=== PATIENT | female | born 1945 | race Caucasian/White ===

== ENCOUNTER 2017-07-26 09:09 | Inpatient (IN) | payer OTHER, BC ==
[2017-07-26] MEDS ORDERED: SODIUM CHLORIDE 0.9% 1000 ML INFUS.BAG IV ONE (09:44)
[2017-07-26] MEDS ORDERED: ONDANSETRON 4 MG/2 ML VIAL IVPUSH ONE (09:44)
--- NOTE | 2017-07-26 10:09 | PDOC ---
History of Present Illness - History of Present Illness Initial Comments: 07/26/17 10:23 The patient is a 71 year old female with history of hypertension, hyperlipidemia , diabetes, atrial fibrillation, CVA x 6, uterine CA s/p hysterectomy, who presents to the ED complaining of left abdominal pain, nausea, and multiple episodes of nonbloody nonbilious vomiting that began last night. She states she has producing multiple bowel movements, no diarrhea or constipation. She denies fever or chills. She denies chest pain or shortness of breath. PCP: Dr. Benjamin Signals Collector/Analyst: Dr. Kahn <Lizzie Betancourt - Last Filed: 07/26/17 16:28> - General History Source: Patient Exam Limitations: No Limitations <Sammi Rodriguez - Last Filed: 07/26/17 17:15> - General Stated Complaint: PAIN Past History <Lizzie Betancourt - Last Filed: 07/26/17 16:28> - Past Medical History Anemia: No Asthma: No Cancer: Yes (uterine ca with radiation hx) CVA: Yes (cva x 6 with left facial and UE residual) COPD: No Diabetes: Yes HTN: Yes Hypercholesterolemia: Yes - Surgical History Cardiac Surgery: Yes (STENTx2) Cholecystectomy: Yes - Immunization History Immunization Up to Date: Yes - Suicide/Smoking/Psychosocial Hx Smoking Status: No Smoking History: Never smoked Have you smoked in the past 12 months: No Number of Cigarettes Smoked Daily: 0 Hx Alcohol Use: No Drug/Substance Use Hx: No Substance Use Type: None Hx Substance Use Treatment: No <Sammi Rodriguez - Last Filed: 07/26/17 17:15> - Past Medical History Allergies/Adverse Reactions: Allergies Allergy/AdvReac Type Severity Reaction Status Date / Time No Known Allergies Allergy Verified 08/08/16 14:30 Home Medications: Ambulatory Orders Escitalopram Oxalate [Lexapro -] 5 mg PO DAILY #0 tablet 09/24/13 Furosemide [Lasix -] 40 mg PO DAILY #30 tablet 08/17/16 Rivaroxaban [Xarelto -] 20 mg PO DAILY tablet 08/17/16 Amiodarone HCl 200 mg PO ONCE 07/26/17 Atorvastatin Ca [Lipitor] 40 mg PO HS 07/26/17 Digoxin [Lanoxin -] 0.125 mg PO DAILY 07/26/17 Insulin Glargine,Hum.rec.anlog [Lantus (nf)] 10 units SQ HS 07/26/17 Metoprolol Tartrate [Lopressor -] 50 mg PO TID 07/26/17 Omeprazole 20 mg PO ONCE 07/26/17 Review of Systems - Review of Systems Able to Perform ROS?: Yes Comments:: 07/26/17 10:31 GENERAL/CONSTITUTIONAL: No fever or chills. No acute weakness. HEAD, EYES, EARS, NOSE AND THROAT: No change in vision. No ear pain or discharge. No sore throat. CARDIOVASCULAR: No chest pain or shortness of breath. RESPIRATORY: No cough, wheezing, or hemoptysis. GASTROINTESTINAL: +Left abdominal pain, nausea, multiple episodes of diarrhea. No diarrhea or constipation. GENITOURINARY: No dysuria, frequency, or change in urination. MUSCULOSKELETAL: No joint or muscle swelling or pain. No neck or back pain. SKIN: No rash NEUROLOGIC: No headache, vertigo, loss of consciousness, or change in strength/ sensation. ENDOCRINE: No increased thirst. No abnormal weight change. HEMATOLOGIC/LYMPHATIC: No anemia, easy bleeding, or history of blood clots. ALLERGIC/IMMUNOLOGIC: No hives or skin allergy. <Lizzie Betancourt - Last Filed: 07/26/17 16:28> *Physical Exam - Vital Signs Last Vital Signs Temp Pulse Resp BP Pulse Ox 97.9 F 69 18 114/49 100 07/26/17 09:23 07/26/17 09:23 07/26/17 09:23 07/26/17 09:23 07/26/17 09:23 - Physical Exam Comments: 07/26/17 10:37 GENERAL: WDWN. In no acute distress HEAD: No signs of trauma EYES: PERRLA, EOMI, sclera anicteric, conjunctiva clear ENT: Auricles normal inspection, nares patent. Moist mucosa NECK: Normal ROM, supple, no JVD, or masses LUNGS: Breath sounds equal, clear to auscultation bilaterally. No wheezes, and no crackles HEART: Regular rate and rhythm, normal S1 and S2, no murmurs, rubs or gallops ABDOMEN: +Left mid abdominal tenderness to palpation. Soft, normoactive bowel sounds. No guarding, no rebound. No masses EXTREMITIES: Normal range of motion, no edema. No clubbing or cyanosis. No cords, erythema, or tenderness NEUROLOGICAL: Awake and alert. Moving all extremities. Ambulates with walker. SKIN: Warm, Dry, normal turgor, no rashes or lesions noted. <Lizzie Betancourt - Last Filed: 07/26/17 16:28> - Vital Signs Last Vital Signs Temp Pulse Resp BP Pulse Ox 97.9 F 69 18 114/49 100 07/26/17 09:23 07/26/17 09:23 07/26/17 09:23 07/26/17 09:23 07/26/17 09:23 <ZeniakandisSammi - Last Filed: 07/26/17 17:15> Heart Score/ECG Review #1 General ECG Interpretation: Sinus Rhythm, Normal Rate (66), Normal Intervals, No acute ischemic changes <JenniferSammi - Last Filed: 07/26/17 17:15> ED Treatment Course - LABORATORY CBC & Chemistry Diagram: 07/26/17 11:04 07/26/17 11:04 <Lizzie Betancourt - Last Filed: 07/26/17 16:28> - LABORATORY CBC & Chemistry Diagram: 07/26/17 11:04 07/26/17 11:04 - RADIOLOGY Radiology Studies Ordered: Category Date Time Status ABDOMEN & PELVIS CT WITH CONTR [CT] Stat CT Scan 07/26/17 09:43 Ordered <JenniferSammi - Last Filed: 07/26/17 17:15> Medical Decision Making - Medical Decision Making 07/26/17 16:29 CT of adbomen and pelvis, read and reviewed by Dr. Evans, shows evidence of partial SBO. Case discussed with Dr. Thompson of general surgery who agrees to consult. Admit to Dr. Lamar, who admits for patients PCP Dr. Benjamin. <Lizzie Betancourt - Last Filed: 07/26/17 16:28> - Medical Decision Making 07/26/17 10:02 71-year-old female with a history of hypertension, diabetes, prior CVA with mild residual left-sided weakness here today with nausea and vomiting that started last evening. Patient reports multiple episodes of nonbloody nonbilious emesis. Has been having stools no change denies diarrhea. Now having mild left- sided abdominal pain. No fevers, chills, urinary symptoms, no moderating factors. On exam the patient has mild left mid quadrant abdominal tenderness no rebound no guarding. Otherwise unremarkable Differential diagnosis: Dehydration, electrolyte abnormality, diverticulitis, small bowel obstruction, pancreatitis. Plan: IV fluids, labs, CT abdomen and pelvis and UA. <Sammi Rodriguez - Last Filed: 07/26/17 17:15> *DC/Admit/Observation/Transfer - Attestations Scribe Attestion: 07/26/17 10:39 Documentation prepared by Lizzie Betancourt, acting as medical aide for Sammi Rodriguez MD. <Lizzie Betancourt - Last Filed: 07/26/17 16:28> - Discharge Dispostion Admit: Yes <Sammi Rodriguez - Last Filed: 07/26/17 17:15> Diagnosis at time of Disposition: Partial small bowel obstruction - Referrals Referrals: Amber Benjamin MD [Primary Care Provider] - - Patient Instructions - Post Discharge Activity
[2017-07-26] MEDS ORDERED: ONDANSETRON 4 MG/2 ML VIAL ONE (10:27)
[2017-07-26 11:16] LABS: BASOPHIL 0.3 % (0-2.0); MCH 29.6 pg (25.7-33.7); MCHC 33.2 g/dl (32.0-36.0); MEAN CELL VOLUME 89.1 fl (80-96); MEAN PLT VOLUME 9.6 fl (7.5-11.1); NEUTROPHILS 89.3 % (42.8-82.8); PLATELET COUNT 165 K/MM3 (134-434); RDW 14.6 % (11.6-15.6); WHITE BLOOD COUNT 13.6 K/mm3 (4.0-10.0)
[2017-07-26 11:50] LABS: ALBUMIN 3.5 g/dl (3.4-5.0); ALK PHOS 76 U/L (45-117); ANION GAP 14 (8-16); BILIRUBIN,TOTAL 0.7 mg/dL (0.2-1.0); CALCIUM 9.5 mg/dL (8.5-10.1); CO2 26 mmol/L (21-32); CREATININE 1.4 mg/dL (0.55-1.02); SGOT/AST 31 U/L (15-37); SGPT/ALT 30 U/L (12-78); TOT PROT 7.6 g/dl (6.4-8.2)
[2017-07-26 11:55] LABS: URINE APPEARANCE SLCLOUDY; URINE BILIRUBIN NEGATIVE (NEGATIVE); URINE BLOOD NEGATIVE (NEGATIVE); URINE COLOR YELLOW; URINE GLUCOSE (UA) 3+ (NEGATIVE); URINE KETONE NEGATIVE (NEGATIVE); URINE NITRITE NEGATIVE (NEGATIVE); URINE UROBILINOGEN NEGATIVE mg/dL (0.2-1.0)
[2017-07-26 12:03] LABS: URINE PROTEIN 2+ (NEGATIVE)
[2017-07-26 12:10] LABS: URINE BACTERIA MANY /hpf (NONE SEEN); URINE HYALINE CAST 22 /lpf; URINE MUCUS RARE; URINE RBC 0-2 /hpf (0-3)
[2017-07-26 12:22] LABS: GLUCOSE,RANDOM 318 mg/dL (74-106)
[2017-07-26 16:21] LABS: URINE LEUK ESTERASE Negative (NEGATIVE)
[2017-07-26] MEDS ORDERED: ONDANSETRON 4 MG/2 ML VIAL IVPUSH PRN (16:51)
[2017-07-26] MEDS ORDERED: morphine SULFATE 4 MG/ML VIAL IVPUSH PRN (16:51)
[2017-07-26] MEDS ORDERED: DOCUSATE SODIUM 100 MG CAPSULE (FP) PO PRN (16:51)
[2017-07-26] MEDS ORDERED: HEPARIN NA (PORCINE) 5,000 UNITS/ML 1ML VIAL IVPUSH PRN ×2 (17:02)
--- NOTE | 2017-07-26 17:09 | HP ---
Admitting History and Physical - Primary Care Physician PCP: Amber Benjamin - Admission Chief Complaint: I'm throwing up History of Present Illness: Ms Whitlock is a pleasant 71 year old female who comes in with abdominal pain and throwing up x24 hours. She was in her normal state of health until last when she developed abdominal pain. She says the pain was sharp/crampy in nature and constant. At its worst it was an 8/10. She says nothing relieved or exacerbated it. She says she soon after developed vomiting. She states that the emesis was clear, there was no blood or coffee ground emesis. She had anorexia secondary to the pain and vomiting. The pain was not improving and she came in here. Aside from this she is without complaint. She denies fevers, chills, lightheadedness, dizziness, passing out, chest pain or pressure, shortness of breath, diarrhea, constipation, pain or difficulty urinating, or swelling. She says her last bowel movement was this morning and was normal. 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 Cardiovascular: Yes: AFIB, CAD, CHF, HTN, Hyperlipdemia Gastrointestinal: Yes: Other (history colon cancer by report, resection) Psych: Yes: Depression Endocrine: Yes: Diabetes Mellitus - Past Surgical History Past Surgical History: Yes: Hysterectomy - Smoking History Smoking history: Never smoked Have you smoked in the past 12 months: No Aproximately how many cigarettes per day: 0 - Alcohol/Substance Use Hx Alcohol Use: No History of Substance Use: reports: None - Social History Usual Living Arrangement: Yes: With Child ADL: Support Services History of Recent Travel: No Home Medications - Allergies Allergies/Adverse Reactions: Allergies Allergy/AdvReac Type Severity Reaction Status Date / Time No Known Allergies Allergy Verified 08/08/16 14:30 - Home Medications Home Medications: Ambulatory Orders Escitalopram Oxalate [Lexapro -] 5 mg PO DAILY #0 tablet 09/24/13 Furosemide [Lasix -] 40 mg PO DAILY #30 tablet 08/17/16 Rivaroxaban [Xarelto -] 20 mg PO DAILY tablet 08/17/16 Amiodarone HCl 200 mg PO ONCE 07/26/17 Atorvastatin Ca [Lipitor] 40 mg PO HS 07/26/17 Digoxin [Lanoxin -] 0.125 mg PO DAILY 07/26/17 Insulin Glargine,Hum.rec.anlog [Lantus (nf)] 10 units SQ HS 07/26/17 Metoprolol Tartrate [Lopressor -] 50 mg PO TID 07/26/17 Omeprazole 20 mg PO ONCE 07/26/17 Family Disease History - Family Disease History Family History: Unremarkable Family Disease History: Other: Mother ( at age 95) Review of Systems Findings/Remarks: Full review of systems obtained, as per HPI and otherwise negative Physical Examination Vital Signs: Vital Signs Temperature 37.2 C 07/26/17 14:28 Pulse Rate 80 07/26/17 14:28 Respiratory Rate 18 07/26/17 14:28 Blood Pressure 139/57 07/26/17 14:28 O2 Sat by Pulse Oximetry (%) 100 07/26/17 14:28 Constitutional: Yes: Well Nourished, No Distress, Calm Eyes: Yes: Conjunctiva Clear, EOM Intact, PERRL HENT: Yes: Atraumatic, Normocephalic Cardiovascular: Yes: Regular Rate and Rhythm. No: Gallop, Murmur, Rub Respiratory: Yes: Regular, CTA Bilaterally. No: Rales, Rhonchi, Wheezes Gastrointestinal: Yes: Soft, Hypoactive Bowel Sounds (but present). No: Distention, Tenderness Extremities: Yes: WNL Edema: No Labs: CBC, BMP 07/26/17 11:04 07/26/17 11:04 Imaging - Results Cat Scan: Report Reviewed Problem List - Problems (1) Partial small bowel obstruction Assessment/Plan: -patient presents with abdominal pain and vomiting -found to have partial SBO on CT scan -surgery consulted -admit to med surg -npo except meds -NGT placement -hydration -monitor for improvement Code(s): K56.600 - PARTIAL INTESTINAL OBSTRUCTION, UNSPECIFIED TO CAUSE (2) BENITO (acute kidney injury) Assessment/Plan: -secondary to dehydration -hold lasix -hydrate with IVF -I/Os and daily weights Code(s): N17.9 - ACUTE KIDNEY FAILURE, UNSPECIFIED (3) Pneumonia Assessment/Plan: -noted on CT scan -also with leukocytosis -possible aspiration pneumonia, however leukocytosis could be from GI source or inflammation -will place on flagyl -considered levaquin, however has interaction with amiodarone -place on rocephin Code(s): J18.9 - PNEUMONIA, UNSPECIFIED ORGANISM Qualifiers: Pneumonia type: due to Mycoplasma pneumoniae (4) Bacteriuria Assessment/Plan: -lower suspicion for acute UTI considering urinalysis -however will check urine culture -will place on rocephin/flagyl for above reason Code(s): R82.71 - BACTERIURIA (5) Atrial fibrillation Assessment/Plan: -rhythm controlled with amiodarone -however has history of CVAs in past -continue amiodarone and metoprolol -cardiology consult -will place on heparin gtt since with strokes in past -hold xarelto Code(s): I48.91 - UNSPECIFIED ATRIAL FIBRILLATION Qualifiers: Atrial fibrillation type: chronic Qualified Code(s): I48.2 - Chronic atrial fibrillation (6) Diabetes Assessment/Plan: -with hyperglycemia -FSBS q6h with SSI Code(s): E11.9 - TYPE 2 DIABETES MELLITUS WITHOUT COMPLICATIONS Qualifiers: Diabetes mellitus type: type 2 Diabetes mellitus complication status: with circulatory complication Diabetes mellitus halfway insulin use: without halfway use (7) Chronic systolic CHF (congestive heart failure) Assessment/Plan: -not in exacerbation -hydration secondary to BENITO -hold lasix Code(s): I50.22 - CHRONIC SYSTOLIC (CONGESTIVE) HEART FAILURE (8) Aortic stenosis Assessment/Plan: -calcification noted on CT scan -no murmur heard -followed by Dr Kahn, case d/w Dr Garcia -consult place, if no recent ECHO may benefit from one while here Code(s): I35.0 - NONRHEUMATIC AORTIC (VALVE) STENOSIS
[2017-07-26] MEDS: SODIUM CHLORIDE 1,000 ML IV SCH (17:15)
[2017-07-26] MEDS: CEFTRIAXONE 1 G/50 ML PREMIX 1 ML IVPB SCH (17:30)
[2017-07-26] MEDS ORDERED: HEPARIN INFUSION - 25,000 UNITS/500 ML INFUS.BAG IVPB ONE (17:59)
[2017-07-26] MEDS ORDERED: METRONIDAZOLE 500 MG PREMIXED 500 MG/100 ML MG IVPB ONE (17:59)
[2017-07-26] MEDS: METRONIDAZOLE 500 MG PREMIXED 500 MG/100 ML MG IVPB SCH ×2 (18:06→18:44)
[2017-07-26 18:09] VITALS: BMI 26.6
[2017-07-26 18:13] LABS: INR 1.35 (0.82-1.09); PROTHROMBIN TIME (PATIENT) 15.2 SEC (9.98-11.88)
--- NOTE | 2017-07-26 19:20 | CONSULT ---
Consult Consult Specialty:: Surgery Reason for Consultation:: Abdominal pain, intestinal obstruction. - History of Present Illness Chief Complaint: C/O abdominal pain History of Present Illness: 71 year old woman is admitted with abdominal pain since last night, associated with vomiting and vomiting. Last bowel movement this am. 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 Cardio/Vascular: Yes: AFIB, CAD, CHF, HTN, Hyperlipdemia Gastrointestinal: Yes: Other (history colon cancer by report, resection) Psych: Yes: Depression Endocrine: Yes: Diabetes Mellitus - Past Surgical History Past Surgical History: Yes: Hysterectomy - Alcohol/Substance Use Hx Alcohol Use: No History of Substance Use: reports: None - Smoking History Smoking history: Never smoked Have you smoked in the past 12 months: No Aproximately how many cigarettes per day: 0 - Social History ADL: Support Services History of Recent Travel: No Home Medications - Allergies Allergies/Adverse Reactions: Allergies Allergy/AdvReac Type Severity Reaction Status Date / Time No Known Allergies Allergy Verified 08/08/16 14:30 - Home Medications Home Medications: Ambulatory Orders Escitalopram Oxalate [Lexapro -] 5 mg PO DAILY #0 tablet 09/24/13 Furosemide [Lasix -] 40 mg PO DAILY #30 tablet 08/17/16 Rivaroxaban [Xarelto -] 20 mg PO DAILY tablet 08/17/16 Amiodarone HCl 200 mg PO ONCE 07/26/17 Atorvastatin Ca [Lipitor] 40 mg PO HS 07/26/17 Digoxin [Lanoxin -] 0.125 mg PO DAILY 07/26/17 Insulin Glargine,Hum.rec.anlog [Lantus (nf)] 10 units SQ HS 07/26/17 Metoprolol Tartrate [Lopressor -] 50 mg PO TID 07/26/17 Omeprazole 20 mg PO ONCE 07/26/17 Family Disease History - Family Disease History Family Disease History: Other: Mother ( at age 95) Physical Exam Vital Signs: Vital Signs Temperature 99 F 07/26/17 17:42 Pulse Rate 84 07/26/17 17:42 Respiratory Rate 18 07/26/17 17:42 Blood Pressure 134/69 07/26/17 17:42 O2 Sat by Pulse Oximetry (%) 98 07/26/17 17:42 Cardiovascular: Yes: S1 Labs: CBC, BMP 07/26/17 11:04 07/26/17 11:04 Imaging - Results Cat Scan: Report Reviewed, Image Reviewed Problem List - Problems (1) Partial small bowel obstruction Code(s): K56.600 - PARTIAL INTESTINAL OBSTRUCTION, UNSPECIFIED TO CAUSE (2) Abdominal pain Code(s): R10.9 - UNSPECIFIED ABDOMINAL PAIN Qualifiers: Abdominal location: unspecified location Qualified Code(s): R10.9 - Unspecified abdominal pain (3) Atrial fibrillation Code(s): I48.91 - UNSPECIFIED ATRIAL FIBRILLATION Qualifiers: Atrial fibrillation type: chronic Qualified Code(s): I48.2 - Chronic atrial fibrillation (4) BENITO (acute kidney injury) Code(s): N17.9 - ACUTE KIDNEY FAILURE, UNSPECIFIED (5) Chronic systolic CHF (congestive heart failure) Code(s): I50.22 - CHRONIC SYSTOLIC (CONGESTIVE) HEART FAILURE Assessment/Plan Nasogastricaspiration, Intravenous fluids Follow up abdominal Xray. Follow blood work.
[2017-07-26] MEDS: HEPARIN - 25,000 UNIT in SODIUM CHLORIDE 495 ML IV SCH (19:30)
[2017-07-26] MEDS: INSULIN SLIDING SCALE (NOVOLOG) 1 VIAL SQ SCH (22:44)
[2017-07-26] MEDS: METOPROLOL TARTRATE 25 MG TABLET (FP) PO SCH (22:44)
[2017-07-27] MEDS: METRONIDAZOLE 500 MG PREMIXED 500 MG/100 ML MG IVPB SCH ×3 (01:31→17:52)
[2017-07-27] MEDS: INSULIN SLIDING SCALE (NOVOLOG) 1 VIAL SQ SCH ×4 (06:05→17:55)
[2017-07-27] MEDS: METOPROLOL TARTRATE 25 MG TABLET (FP) PO SCH ×3 (06:06→21:58)
[2017-07-27 09:56] LABS: BASOPHIL 0.3 % (0-2.0); MCH 29.2 pg (25.7-33.7); MCHC 32.4 g/dl (32.0-36.0); MEAN CELL VOLUME 90.2 fl (80-96); MEAN PLT VOLUME 9.7 fl (7.5-11.1); NEUTROPHILS 76.7 % (42.8-82.8); PLATELET COUNT 141 K/MM3 (134-434); RDW 15.6 % (11.6-15.6); WHITE BLOOD COUNT 12.9 K/mm3 (4.0-10.0)
[2017-07-27] MEDS ORDERED: AMIODARONE HCL 200 MG TABLET (FP) PO SCH (10:00)
--- NOTE | 2017-07-27 10:09 | PN ---
Progress Note, Physician - Current Medication List Current Medications: Active Medications Amiodarone HCl (Cordarone -) 200 mg PO DAILY [facility] Digoxin (Lanoxin -) 0.125 mg PO DAILY [facility] Docusate Sodium (Colace -) 100 mg PO BID PRN PRN Reason: CONSTIPATION Escitalopram Oxalate (Lexapro -) 5 mg PO DAILY [facility] Heparin Sodium (Porcine) (Heparin -) 1,000 unit IVPUSH PRN PRN PRN Reason: Heparin Heparin Sodium (Porcine) (Heparin -) 5,000 unit IVPUSH PRN PRN PRN Reason: Heparin Sodium Chloride (Normal Saline -) 1,000 mls @ 75 mls/hr IV ASDIR [facility] Last Admin: 07/26/17 17:15 Dose: 75 mls/hr CEFTRIAXONE 1 G/50 ML PREMIX (Ceftriaxone 1 Gm-D5w Bag) 1 mls @ 2 mls/hr IVPB DAILY [facility] Last Admin: 07/26/17 17:30 Dose: 2 mls/hr Metronidazole (Flagyl 500mg Premixed Ivpb -) 500 mg in 100 mls @ 100 mls/hr IVPB Q8H-IV [facility] Last Admin: 07/27/17 01:31 Dose: 100 mls/hr Heparin Sodium (Porcine) 25, (000 unit/ Sodium Chloride) 500 mls @ 20 mls/hr IV TITR NADIYA; 1,000 UNIT/HR PRN Reason: Protocol Last Admin: 07/26/17 19:30 Dose: 1,000 unit/hr, 20 mls/hr Insulin Aspart (Novolog Vial Sliding Scale -) 1 vial SQ ACHS NADIYA PRN Reason: Protocol Last Admin: 07/27/17 06:05 Dose: Not Given Metoprolol Tartrate (Lopressor -) 50 mg PO TID [facility] Last Admin: 07/27/17 06:06 Dose: Not Given Morphine Sulfate (Morphine Sulfate) 1 mg IVPUSH Q4H PRN PRN Reason: PAIN Ondansetron HCl (Zofran Injection) 4 mg IVPUSH Q6H PRN PRN Reason: NAUSEA Polyethylene Glycol (Miralax (For Daily Use) -) 17 gm PO DAILY [facility] - Objective Vital Signs: Vital Signs Temperature 99.3 F 07/27/17 05:58 Pulse Rate 68 07/27/17 05:58 Respiratory Rate 21 07/27/17 05:58 Blood Pressure 103/60 07/27/17 05:58 O2 Sat by Pulse Oximetry (%) 98 07/26/17 21:00 Labs: CBC, BMP 07/26/17 11:04 INR, PTT INR 1.35 (0.82-1.09) H D 07/26/17 17:50 Problem List - Problems (1) Partial small bowel obstruction Code(s): K56.600 - PARTIAL INTESTINAL OBSTRUCTION, UNSPECIFIED TO CAUSE (2) Abdominal pain Code(s): R10.9 - UNSPECIFIED ABDOMINAL PAIN Qualifiers: Abdominal location: unspecified location Qualified Code(s): R10.9 - Unspecified abdominal pain (3) Atrial fibrillation Code(s): I48.91 - UNSPECIFIED ATRIAL FIBRILLATION Qualifiers: Atrial fibrillation type: chronic Qualified Code(s): I48.2 - Chronic atrial fibrillation (4) BENITO (acute kidney injury) Code(s): N17.9 - ACUTE KIDNEY FAILURE, UNSPECIFIED (5) Chronic systolic CHF (congestive heart failure) Code(s): I50.22 - CHRONIC SYSTOLIC (CONGESTIVE) HEART FAILURE Assessment/Plan Intestinal obstructio , partial. Patient feels better v. Abdomen is soft, not tender. Abdomenal X ray , shows contrast in descending colon , with no dilated loops of small bowel . ? resolved small bowel obstruction. D/C NG tube , resume feeding. discussed with the medical service. Patient is explained.
--- NOTE | 2017-07-27 10:38 | PN ---
Progress Note (short form) - Note Progress Note: c/o abdominal pain but states it is improved since yesterday. +frequent belching. denies SOB, fever, chills, cough, N/V/C/D, dysuria, urinary frequency Current Medications Generic Name Dose Route Start Last Admin Trade Name Freq PRN Reason Stop Dose Admin Amiodarone HCl 200 mg 07/27/17 10:00 Cordarone - PO DAILY [facility] Digoxin 0.125 mg 07/27/17 10:00 Lanoxin - PO DAILY [facility] Docusate Sodium 100 mg 07/26/17 16:51 Colace - PO BID PRN CONSTIPATION Escitalopram Oxalate 5 mg 07/27/17 10:00 Lexapro - PO DAILY NADIYA Heparin Sodium (Porcine) 1,000 unit 07/26/17 17:02 Heparin - IVPUSH PRN PRN Heparin Heparin Sodium (Porcine) 5,000 unit 07/26/17 17:02 Heparin - IVPUSH PRN PRN Heparin Sodium Chloride 1,000 mls @ 75 mls/hr 07/26/17 17:00 07/26/17 17:15 Normal Saline - IV 75 mls/hr ASDIR NADIYA Administration CEFTRIAXONE 1 G/50 ML PREMIX 1 mls @ 2 mls/hr 07/26/17 17:15 07/26/17 17:30 Ceftriaxone 1 Gm-D5w Bag IVPB 2 mls/hr DAILY NADIYA Administration Metronidazole 500 mg in 100 mls @ 100 mls/hr 07/26/17 17:15 07/27/17 01:31 Flagyl 500mg Premixed Ivpb - IVPB 100 mls/hr Q8H-IV NADIYA Administration Heparin Sodium (Porcine) 25, 500 mls @ 20 mls/hr 07/26/17 17:15 07/26/17 19: 30 000 unit/ Sodium Chloride IV 1,000 unit/hr TITR NADIYA 20 mls/hr Protocol Administration 1,000 UNIT/HR Insulin Aspart 1 vial 07/26/17 22:00 07/27/17 06:05 Novolog Vial Sliding Scale - SQ Not Given ACHS [facility] Protocol Metoprolol Tartrate 50 mg 07/26/17 22:00 07/27/17 06:06 Lopressor - PO Not Given TID NADIYA Morphine Sulfate 1 mg 07/26/17 16:51 Morphine Sulfate IVPUSH Q4H PRN PAIN Ondansetron HCl 4 mg 11/08/17 16:51 Zofran Injection IVPUSH Q6H PRN NAUSEA Polyethylene Glycol 17 gm 07/27/17 10:00 Miralax (For Daily Use) - PO DAILY NADIYA Last Vital Signs Temp Pulse Resp BP Pulse Ox 99.3 F 68 21 103/60 98 07/27/17 05:58 07/27/17 05:58 07/27/17 05:58 07/27/17 05:58 07/26/17 21:00 Intake & Output 07/24/17 07/25/17 07/26/17 07/27/17 23:59 23:59 23:59 23:59 Intake Total 992 Output Total 100 Balance 892 Weight 155 lb 0.006 oz General NAD CV S1 S2 +, +murmur Lungs rales B/L, crackles R base. no wheezing Abdomen soft +RLQ tenderness hypoactive BS Extremities no pedal edema CBCD WBC 12.9 K/mm3 (4.0-10.0) H 07/27/17 06:00 RBC 4.19 M/mm3 (3.60-5.2) 07/27/17 06:00 Hgb 12.2 GM/dL (10.7-15.3) D 07/27/17 06:00 Hct 37.8 % (32.4-45.2) 07/27/17 06:00 MCV 90.2 fl (80-96) 07/27/17 06:00 MCHC 32.4 g/dl (32.0-36.0) 07/27/17 06:00 RDW 15.6 % (11.6-15.6) 07/27/17 06:00 Plt Count 141 K/MM3 (134-434) 07/27/17 06:00 MPV 9.7 fl (7.5-11.1) 07/27/17 06:00 A/P 71yo F with PMH afib on xarelto, CAD, CHF, colon ca s/p resection, DM, HTN and As presented to the ER with sudden onset of abdominal pain and vomiting and was diagnosed with partial SBO 1. Partial SBO-due to adhesion. clinically improved. Repeat AXR today showing resolution of SBO. minimal output from NGT. pt requesting to eat. will clamp NGT and give trial of clear liquids. if able to tolerate will remove NGT. if develops pain or nausea will place NGT back to suction. surgery on board. nausea and pain control 2. Lactic acidosis- due to partial obstruction. repeat lab now 3. BENITO- likely dehydration vs infection. on IVF. awaiting repeat labs. if worsening will check urine studies. 4. Mutlilobar PNA- possible aspiration. leukocytosis improved. afebrile. on Ceftriaxone/Flagyl day 2. 5. Afib on xarelto- oral medications on hold. Xarelto held for possible surgery. on hep ggt. will cont for now. once diet is advanced and tolerating. and determined surgery no longer indicated will place back on xarelto. amio for rate control 6. DM- Will re-start levemir at half of home dose. cont BGM Q6H and iss. will re -start home doses once tolerating diet 7. CHF- no signs of volume overload. will hold lasix at this time. 8. DVT ppx- hep ggt 9. PT assessment Visit type - Emergency Visit Emergency Visit: Yes ED Registration Date: 07/26/17 Care time: The patient presented to the Emergency Department on the above date and was hospitalized for further evaluation of their emergent condition. - New Patient This patient is new to me today: Yes Date on this admission: 07/27/17 - Critical Care Critical Care patient: No - Discharge Referral Referred to [facility] No
[2017-07-27] MEDS: DIGOXIN 0.125 MG TABLET (FP) PO SCH (10:47)
[2017-07-27] MEDS: AMIODARONE HCL 200 MG TABLET (FP) PO SCH (10:47)
[2017-07-27] MEDS: CEFTRIAXONE 1 G/50 ML PREMIX 1 ML IVPB SCH (10:47)
[2017-07-27] MEDS: ESCITALOPRAM OXALATE 10 MG TABLET (FP) PO SCH (10:48)
[2017-07-27] MEDS: POLYETHYLENE GLYCOL 3350 119 GM BTL PO SCH ×2 (10:49→12:18)
[2017-07-27] MEDS: INSULIN DETEMIR 100 UNITS/ML MDV SQ SCH ×2 (11:12→21:58)
[2017-07-27 11:24] LABS: ALBUMIN 2.6 g/dl (3.4-5.0); CALCIUM 7.9 mg/dL (8.5-10.1)
[2017-07-27 11:29] LABS: ALK PHOS 52 U/L (45-117); ANION GAP 7 (8-16); CO2 28 mmol/L (21-32); GLUCOSE,RANDOM 163 mg/dL (74-106); MAGNESIUM 1.8 mg/dL (1.8-2.4); PHOSPHOROUS 2.7 mg/dL (2.5-4.9); SGOT/AST 52 U/L (15-37); SGPT/ALT 23 U/L (12-78); TOT PROT 5.7 g/dl (6.4-8.2)
[2017-07-27 12:21] LABS: ANION GAP 10 (8-16); CALCIUM 8.4 mg/dL (8.5-10.1); CO2 28 mmol/L (21-32); CREATININE 1.1 mg/dL (0.55-1.02); GLUCOSE,RANDOM 171 mg/dL (74-106)
--- NOTE | 2017-07-27 12:24 | CON.CARD ---
Consult Consult Specialty:: Cardiology Referred by:: Dr. Lamar Reason for Consultation:: Possible preop, afib, aortic stenosis - History of Present Illness Chief Complaint: abd pain History of Present Illness: 71 year old woman with a history of HTN, HLD, Chronic systolic CHF with h/o mod- sev LV dysfunction, afib on Xarelto and amiodarone, colon Ca with h/o resection admitted with a partial small bowel obstruction. Pt was evaluated by surgery and felt to not require surgery, plan is to advance diet as tolerated. Pt seen and examined today in nad. states she is feeling better. Denies any chest pain, sob, palpitations. no pnd, orthopnea, or LE edema. 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 Cardio/Vascular: Yes: AFIB, CAD, CHF, HTN, Hyperlipdemia Gastrointestinal: Yes: Other (history colon cancer by report, resection) Psych: Yes: Depression Endocrine: Yes: Diabetes Mellitus - Past Surgical History Past Surgical History: Yes: Hysterectomy - Alcohol/Substance Use Hx Alcohol Use: No History of Substance Use: reports: None - Smoking History Smoking history: Never smoked Have you smoked in the past 12 months: No Aproximately how many cigarettes per day: 0 - Social History ADL: Support Services History of Recent Travel: No Home Medications - Allergies Allergies/Adverse Reactions: Allergies Allergy/AdvReac Type Severity Reaction Status Date / Time No Known Allergies Allergy Verified 08/08/16 14:30 - Home Medications Home Medications: Ambulatory Orders Escitalopram Oxalate [Lexapro -] 5 mg PO DAILY #0 tablet 09/24/13 Furosemide [Lasix -] 40 mg PO DAILY #30 tablet 08/17/16 Rivaroxaban [Xarelto -] 20 mg PO DAILY tablet 08/17/16 Amiodarone HCl 200 mg PO ONCE 07/26/17 Atorvastatin Ca [Lipitor] 40 mg PO HS 07/26/17 Digoxin [Lanoxin -] 0.125 mg PO DAILY 07/26/17 Insulin Glargine,Hum.rec.anlog [Lantus (nf)] 10 units SQ HS 07/26/17 Metoprolol Tartrate [Lopressor -] 50 mg PO TID 07/26/17 Omeprazole 20 mg PO ONCE 07/26/17 Family Disease History - Family Disease History Family Disease History: Other: Mother ( at age 95) Review of Systems - Review of Systems Constitutional: denies: No Symptoms, Chills, Diaphoresis, Fever, Lethargy, Loss of Appetite, Malaise, Night Sweats, Unintentional Wgt. Loss, Weakness, Other Eyes: denies: No Symptoms, Blind Spots, Blurred Vision, Double Vision, Eye Pain , Floaters, Photophobia, Recent Change in Vision, Other HENT: denies: No Symptoms, Difficult Swallowing, Ear Discharge, Ear Pain, Epistaxis, Gingival Bleeding, Hearing Loss, Mouth Swelling, Nasal Congestion, Ocular Prosthesis, Throat Pain, Toothache, Ringing in Ears, Other Neck: denies: No Symptoms, Decreased ROM, Lumps, Pain on Movement, Stiffness, Swollen Glands, Tenderness, Other Cardiovascular: denies: No Symptoms, Chest Pain, Edema, Palpitations, Shortness of Breath, Other Respiratory: denies: No Symptoms, Cough, Exercise Intolerance, Hemoptysis, Orthopnea, PND, Snoring, SOB, SOB on Exertion, Wheezing, Other Gastrointestinal: reports: Abdominal Pain, Nausea Genitourinary: denies: No Symptoms, Burning, Discharge, Dysuria, Flank Pain, Frequency, Hematuria, Incontinence, Lesions, Menses, Pain, Testicular Mass, Testicular Pain, Testicular Swelling, Urgency, Vaginal Bleeding, Other Breasts: denies: No Symptoms Reported, See HPI, Breast Implants, Discharge from Nipple, Lumps, Pain, Skin Changes, Other Musculoskeletal: denies: No Symptoms, Back Pain, Crepitus, Decreased ROM, Extremity Pain, Joint Pain, Joint Swelling, Muscle Pain, Muscle Cramps, Muscle Weakness, Other Integumentary: denies: No Symptoms, Blister, Bruising, Change in Color, Eczema, Erythema, Incision, Lesions, Lump, Pallor, Pruritis, Rash, Wound, Other Neurological: denies: No Symptoms, Change in LOC, Change in Speech, Confusion, Dizziness, Headache, Incoordination, Numbness, Parasthesia, Pre-Existing Deficit , Seizure, Syncope, Tremors, Unsteady Gait, Weakness, Other Hematology/Lymphatic: denies: No Symptoms, Easily Bruised, Excessive Bleeding, Swollen Glands, Other Psychiatric: denies: No Symptoms, Altered Sleep Pattern, Anxiety, Depression, Hallucinations, Panic, Paranoia, Suicidal, Other - Risk Factors Known Risk Factors: Yes: Hypercholesterolemia, Hypertension Vital Signs: Vital Signs Temperature 99.3 F 07/27/17 05:58 Pulse Rate 68 07/27/17 05:58 Respiratory Rate 21 07/27/17 05:58 Blood Pressure 103/60 07/27/17 05:58 O2 Sat by Pulse Oximetry (%) 98 07/26/17 21:00 Constitutional: Yes: Well Nourished, No Distress, Calm Eyes: Yes: WNL, Conjunctiva Clear, EOM Intact, PERRL HENT: Yes: WNL, Atraumatic, Normocephalic Neck: Yes: WNL, Supple, Trachea Midline Respiratory: Yes: WNL, Regular, CTA Bilaterally. No: Rales, Rhonchi, Wheezes Gastrointestinal: Yes: WNL, Normal Bowel Sounds, Soft. No: Distention, Tenderness Renal/: Yes: WNL Cardiovascular: Yes: WNL, Regular Rate and Rhythm. No: Bradycardia, Tachycardia , Pulse Irregular, Gallop, Rub, Varicosities JVD: No Carotid Bruit: No PMI: Non-Displaced Heart Sounds: Yes: S1, S2. No: Split S2, S3, S4, Clicks, Gallop, Rub, Bruit Murmur: Yes: Systolic Murmur. No: Diastolic Murmur, Grade 1 Musculoskeletal: Yes: WNL Extremities: Yes: WNL Edema: No Peripheral Pulses WNL: Yes Peripheral Pulses: 2+ Left Doralis Pedis, 2+ Right Dorsalis Pedis Integumentary: Yes: WNL Neurological: Yes: Alert, Oriented Psychiatric: Yes: Alert, Oriented - Other Data Labs, Other Data: CBC, BMP 07/27/17 06:00 INR, PTT INR 1.35 (0.82-1.09) H D 07/26/17 17:50 ekg-nsr 66bpm, incomplete rbbb, lvh, nonspecific ST abnl Imaging - Results Chest X-ray: Report Reviewed, Image Reviewed EKG: Report Reviewed, Image Reviewed Other: Report Reviewed, Image Reviewed Assessment/Plan 71 year old woman with a history of HTN, HLD, Chronic systolic CHF with h/o mod- sev LV dysfunction, afib on Xarelto and amiodarone, colon Ca with h/o resection admitted with a partial small bowel obstruction. Pt was evaluated by surgery and felt to not require surgery, plan is to advance diet as tolerated. Preop cardiac evaluation -at this time pt does not require surgery -as per surgery, plan to advance diet as tolerates Atrial fibrillation-NSR on ekg -heparin gtt was used to bridge through possible surgery and xarelto was held -once tolerating po meds can resume Xarelto and stop heparin -cont home amiodarone, metoprolol, digoxin doses -outpatient f/up Chronic systolic CHF-presumed in past to be NICM secondary to AFib with RVR -nuclear stress test done 07/2016 here showed no ischemia and normal LVEF -currently euvolemic -cont home medical regimen -outpatient f/up Of note, as per our office EMR pt has not been to the office in at least the past few years (she is not in the EMR) Pt with multiple complicated cardiac conditions, recc close outpatient f/up
--- NOTE | 2017-07-27 16:38 | EKG ---
Test Reason : Blood Pressure : / mmHG Vent. Rate : 066 BPM Atrial Rate : 065 BPM P-R Int : 000 ms QRS Dur : 086 ms QT Int : 434 ms P-R-T Axes : 000 -05 009 degrees QTc Int : 454 ms SINUS RHYTHM CANNOT RULE OUT ANTERIOR INFARCT (CITED ON OR BEFORE 26-JUL-2017) ABNORMAL ECG Confirmed by LOVELY COLEMAN MD ([id number]) on 07/27/2017 4:38:11 PM Referred By: Confirmed By:LOVELY COLEMAN MD
[2017-07-27] MEDS: HEPARIN - 25,000 UNIT in SODIUM CHLORIDE 495 ML IV SCH (17:53)
[2017-07-27] MEDS: SODIUM CHLORIDE 1,000 ML IV SCH (17:54)
[2017-07-28] MEDS: INSULIN SLIDING SCALE (NOVOLOG) 1 VIAL SQ SCH ×4 (00:05→17:51)
[2017-07-28] MEDS: METRONIDAZOLE 500 MG PREMIXED 500 MG/100 ML MG IVPB SCH ×3 (01:17→18:46)
[2017-07-28] MEDS: SODIUM CHLORIDE 1,000 ML IV SCH ×2 (03:37→13:41)
[2017-07-28] MEDS: METOPROLOL TARTRATE 25 MG TABLET (FP) PO SCH ×3 (05:59→21:59)
[2017-07-28 08:24] LABS: MCH 29.1 pg (25.7-33.7); MCHC 32.5 g/dl (32.0-36.0); MEAN CELL VOLUME 89.4 fl (80-96); MEAN PLT VOLUME 9.7 fl (7.5-11.1); PLATELET COUNT 141 K/MM3 (134-434); WHITE BLOOD COUNT 11.6 K/mm3 (4.0-10.0)
[2017-07-28 08:54] LABS: ANION GAP 7 (8-16); CALCIUM 7.9 mg/dL (8.5-10.1); CO2 27 mmol/L (21-32); CREATININE 0.9 mg/dL (0.55-1.02); GLUCOSE,RANDOM 124 mg/dL (74-106)
[2017-07-28] MEDS: ESCITALOPRAM OXALATE 10 MG TABLET (FP) PO SCH (10:28)
[2017-07-28] MEDS: DIGOXIN 0.125 MG TABLET (FP) PO SCH (10:30)
[2017-07-28] MEDS: AMIODARONE HCL 200 MG TABLET (FP) PO SCH (10:31)
[2017-07-28] MEDS: POLYETHYLENE GLYCOL 3350 119 GM BTL PO SCH (10:31)
[2017-07-28] MEDS: CEFTRIAXONE 1 G/50 ML PREMIX 1 ML IVPB SCH (10:32)
--- NOTE | 2017-07-28 10:39 | PN ---
Progress Note, Physician Chief Complaint: no distress sitting in chair No palps or CP - Current Medication List Current Medications: Active Medications Amiodarone HCl (Cordarone -) 200 mg PO DAILY [facility] Last Admin: 07/28/17 10:31 Dose: 200 mg Digoxin (Lanoxin -) 0.125 mg PO DAILY [facility] Last Admin: 07/28/17 10:30 Dose: 0.125 mg Docusate Sodium (Colace -) 100 mg PO BID PRN PRN Reason: CONSTIPATION Escitalopram Oxalate (Lexapro -) 5 mg PO DAILY [facility] Last Admin: 07/28/17 10:28 Dose: 5 mg Heparin Sodium (Porcine) (Heparin -) 1,000 unit IVPUSH PRN PRN PRN Reason: Heparin Heparin Sodium (Porcine) (Heparin -) 5,000 unit IVPUSH PRN PRN PRN Reason: Heparin Sodium Chloride (Normal Saline -) 1,000 mls @ 75 mls/hr IV ASDIR [facility] Last Admin: 07/28/17 03:37 Dose: 75 mls/hr CEFTRIAXONE 1 G/50 ML PREMIX (Ceftriaxone 1 Gm-D5w Bag) 1 mls @ 2 mls/hr IVPB DAILY [facility] Last Admin: 07/28/17 10:32 Dose: 2 mls/hr Metronidazole (Flagyl 500mg Premixed Ivpb -) 500 mg in 100 mls @ 100 mls/hr IVPB Q8H-IV [facility] Last Admin: 07/28/17 10:32 Dose: 100 mls/hr Heparin Sodium (Porcine) 25, (000 unit/ Sodium Chloride) 500 mls @ 20 mls/hr IV TITR [facility]; 1,000 UNIT/HR PRN Reason: Protocol Last Admin: 07/27/17 17:53 Dose: 850 unit/hr, 17 mls/hr Insulin Aspart (Novolog Vial Sliding Scale -) 1 vial SQ Q6HPO [facility] PRN Reason: Protocol Last Admin: 07/28/17 06:00 Dose: Not Given Insulin Detemir (Levemir Vial) 5 units SQ HS [facility] Last Admin: 07/27/17 21:58 Dose: 5 units Metoprolol Tartrate (Lopressor -) 50 mg PO TID [facility] Last Admin: 07/28/17 05:59 Dose: 50 mg Morphine Sulfate (Morphine Sulfate) 1 mg IVPUSH Q4H PRN PRN Reason: PAIN Ondansetron HCl (Zofran Injection) 4 mg IVPUSH Q6H PRN PRN Reason: NAUSEA Polyethylene Glycol (Miralax (For Daily Use) -) 17 gm PO DAILY [facility] Last Admin: 07/28/17 10:31 Dose: Not Given - Objective Vital Signs: Vital Signs Temperature 99.3 F 07/28/17 05:24 Pulse Rate 60 07/28/17 10:30 Respiratory Rate 20 07/28/17 05:24 Blood Pressure 122/60 07/28/17 05:24 O2 Sat by Pulse Oximetry (%) 96 07/27/17 21:00 Cardiovascular: Yes: Regular Rate and Rhythm Respiratory: Yes: CTA Bilaterally Gastrointestinal: Yes: Soft Edema: No Neurological: Yes: Alert, Oriented Labs: CBC, BMP 07/28/17 07:00 07/28/17 07:00 INR, PTT INR 1.35 (0.82-1.09) H D 07/26/17 17:50 Laboratory Tests 07/28/17 07/28/17 07/28/17 07:00 07:00 07:00 WBC 11.6 H Hgb 12.0 Plt Count 141 PTT (Actin FS) 59.9 H Sodium 141 Potassium 3.3 L Creatinine 0.9 Assessment/Plan Assessment/Plan 71 year old woman with a history of HTN, HLD, Chronic systolic CHF with h/o mod- sev LV dysfunction, afib on Xarelto and amiodarone, colon Ca with h/o resection admitted with a partial small bowel obstruction. Pt was evaluated by surgery and felt to not require surgery, plan is to advance diet as tolerated. Atrial fibrillation-NSR on ekg -heparin gtt was used to bridge through possible surgery and xarelto was held -once tolerating po meds can resume Xarelto and stop heparin -cont home amiodarone, metoprolol, digoxin doses -outpatient f/up Chronic systolic CHF-presumed in past to be NICM secondary to AFib with RVR -nuclear stress test done 07/2016 here showed no ischemia and normal LVEF -currently euvolemic -cont home medical regimen -outpatient f/u
--- NOTE | 2017-07-28 12:25 | PN ---
Physical Exam: SUBJECTIVE: Patient seen and examined. Denies nausea, vomiting, abd pain. Events: - NGT pulled yesterday - Tolerating clears - RN reports diarrhea OBJECTIVE: Vital Signs Period Temp Pulse Resp BP Sys/Meyer Pulse Ox Last 24 Hr 99.1 F-99.3 F 60-94 20-20 112-122/60-60 96 PE Neuro: alert, awake, cn 2-12intact HEENT: no teeth Pulm: R base crackles Cv: s1 s2 rrr +3/6 systolic murmur Abd: s nt nd + bs Ext: warm, no le edema Laboratory Results - last 24 hr 07/27/17 07/27/17 07/27/17 11:00 11:15 16:45 WBC RBC Hgb Hct MCV MCH MCHC RDW Plt Count MPV PTT (Actin FS) Sodium 142 Potassium 3.5 Chloride 104 Carbon Dioxide 28 Anion Gap 10 BUN 20 H Creatinine 1.1 H POC Glucometer 172 Random Glucose 171 H Lactic Acid 1.6 Calcium 8.4 L 07/27/17 07/28/17 07/28/17 21:57 05:58 07:00 WBC 11.6 H RBC 4.14 Hgb 12.0 Hct 37.0 MCV 89.4 MCH 29.1 MCHC 32.5 RDW 15.0 Plt Count 141 MPV 9.7 PTT (Actin FS) Sodium Potassium Chloride Carbon Dioxide Anion Gap BUN Creatinine POC Glucometer 157 112 Random Glucose Lactic Acid Calcium 07/28/17 07/28/17 07/28/17 07:00 07:00 11:28 WBC RBC Hgb Hct MCV MCH MCHC RDW Plt Count MPV PTT (Actin FS) 59.9 H Sodium 141 Potassium 3.3 L Chloride 107 Carbon Dioxide 27 Anion Gap 7 L BUN 13 D Creatinine 0.9 POC Glucometer 183 Random Glucose 124 H D Lactic Acid Calcium 7.9 L Active Medications Generic Name Dose Route Start Last Admin Trade Name Freq PRN Reason Stop Dose Admin Amiodarone HCl 200 mg 07/27/17 10:00 07/28/17 10:31 Cordarone - PO 200 mg DAILY [facility] Administration Digoxin 0.125 mg 07/27/17 10:00 07/28/17 10:30 Lanoxin - PO 0.125 mg DAILY [facility] Administration Docusate Sodium 100 mg 07/26/17 16:51 Colace - PO BID PRN CONSTIPATION Escitalopram Oxalate 5 mg 07/27/17 10:00 07/28/17 10:28 Lexapro - PO 5 mg DAILY [facility] Administration Heparin Sodium (Porcine) 1,000 unit 07/26/17 17:02 Heparin - IVPUSH PRN PRN Heparin Heparin Sodium (Porcine) 5,000 unit 07/26/17 17:02 Heparin - IVPUSH PRN PRN Heparin Sodium Chloride 1,000 mls @ 75 mls/hr 07/26/17 17:00 07/28/17 03:37 Normal Saline - IV 75 mls/hr ASDIR [facility] Administration CEFTRIAXONE 1 G/50 ML PREMIX 1 mls @ 2 mls/hr 07/26/17 17:15 07/28/17 10:32 Ceftriaxone 1 Gm-D5w Bag IVPB 2 mls/hr DAILY [facility] Administration Metronidazole 500 mg in 100 mls @ 100 mls/hr 07/26/17 17:15 07/28/17 10:32 Flagyl 500mg Premixed Ivpb - IVPB 100 mls/hr Q8H-IV [facility] Administration Heparin Sodium (Porcine) 25, 500 mls @ 20 mls/hr 07/26/17 17:15 07/27/17 17: 53 000 unit/ Sodium Chloride IV 850 unit/hr TITR [facility] 17 mls/hr Protocol Administration 1,000 UNIT/HR Insulin Aspart 1 vial 07/27/17 10:45 07/28/17 11:29 Novolog Vial Sliding Scale - SQ Not Given Q6HPO [facility] Protocol Insulin Detemir 5 units 07/27/17 10:45 07/27/17 21:58 Levemir Vial SQ 5 units HS [facility] Administration Metoprolol Tartrate 50 mg 07/26/17 22:00 07/28/17 05:59 Lopressor - PO 50 mg TID [facility] Administration Morphine Sulfate 1 mg 07/26/17 16:51 Morphine Sulfate IVPUSH Q4H PRN PAIN Ondansetron HCl 4 mg 07/26/17 16:51 Zofran Injection IVPUSH Q6H PRN NAUSEA Polyethylene Glycol 17 gm 07/27/17 10:00 07/28/17 10:31 Miralax (For Daily Use) - PO Not Given DAILY [facility] Assessment: 71 year old female with PMH afib on xarelto, CAD, CHF, colon ca s/p resection, DM, HTN and As presented to the ER with sudden onset of abdominal pain and vomiting and was diagnosed with partial SBO. Plan: 1. Partial SBO -Due to adhesion - Surgery to advance to PO diet 2. Lactic acidosis - Resolved 3. BENITO - Resolved w hydration 3. Multi ilobar PNA - Possible aspiration - Mild decrease in wbc - Continue Ceftriaxone/Flagyl day 3 4. Afib on xarelto - Heparin gtt - Once tolerating PO, resume xarelto - No surgical intervention per surgery 5. Chronic systolic CHF - Not in exacerbation - Per cards presumed to be NICM secondary to AFib with RVR - Nuclear stress test done 07/2016 here showed no ischemia and normal LVEF - Continue amio 200mg daily, dig 0.125mg, lopressor 50 tid 6. DM II - Will re-start levemir at half of home dose - Cont BGM Q6H and iss - Resume home doses once tolerating diet 7. DVT - Heparin gtt Visit type - Emergency Visit Emergency Visit: Yes ED Registration Date: 07/26/17 Care time: The patient presented to the Emergency Department on the above date and was hospitalized for further evaluation of their emergent condition. - New Patient This patient is new to me today: Yes Date on this admission: 07/28/17 - Critical Care Critical Care patient: No
[2017-07-28] MEDS: HEPARIN - 25,000 UNIT in SODIUM CHLORIDE 495 ML IV SCH (20:15)
[2017-07-28] MEDS: INSULIN DETEMIR 100 UNITS/ML MDV SQ SCH (21:59)
[2017-07-29] MEDS: INSULIN SLIDING SCALE (NOVOLOG) 1 VIAL SQ SCH ×5 (00:56→23:00)
[2017-07-29] MEDS: METRONIDAZOLE 500 MG PREMIXED 500 MG/100 ML MG IVPB SCH ×3 (01:29→17:08)
[2017-07-29] MEDS: SODIUM CHLORIDE 1,000 ML IV SCH ×2 (02:15→17:09)
[2017-07-29] MEDS: METOPROLOL TARTRATE 25 MG TABLET (FP) PO SCH ×3 (06:02→21:46)
[2017-07-29 08:27] LABS: MCH 29.2 pg (25.7-33.7); MCHC 32.3 g/dl (32.0-36.0); MEAN CELL VOLUME 90.5 fl (80-96); MEAN PLT VOLUME 10.1 fl (7.5-11.1); PLATELET COUNT 129 K/MM3 (134-434); RDW 15.2 % (11.6-15.6)
--- NOTE | 2017-07-29 09:16 | PN ---
Progress Note, Physician - Current Medication List Current Medications: Active Medications Amiodarone HCl (Cordarone -) 200 mg PO DAILY [facility] Last Admin: 07/28/17 10:31 Dose: 200 mg Digoxin (Lanoxin -) 0.125 mg PO DAILY [facility] Last Admin: 07/28/17 10:30 Dose: 0.125 mg Docusate Sodium (Colace -) 100 mg PO BID PRN PRN Reason: CONSTIPATION Escitalopram Oxalate (Lexapro -) 5 mg PO DAILY [facility] Last Admin: 07/28/17 10:28 Dose: 5 mg Heparin Sodium (Porcine) (Heparin -) 1,000 unit IVPUSH PRN PRN PRN Reason: Heparin Heparin Sodium (Porcine) (Heparin -) 5,000 unit IVPUSH PRN PRN PRN Reason: Heparin Sodium Chloride (Normal Saline -) 1,000 mls @ 75 mls/hr IV ASDIR [facility] Last Admin: 07/29/17 02:15 Dose: 75 mls/hr CEFTRIAXONE 1 G/50 ML PREMIX (Ceftriaxone 1 Gm-D5w Bag) 1 mls @ 2 mls/hr IVPB DAILY [facility] Last Admin: 07/28/17 10:32 Dose: 2 mls/hr Metronidazole (Flagyl 500mg Premixed Ivpb -) 500 mg in 100 mls @ 100 mls/hr IVPB Q8H-IV [facility] Last Admin: 07/29/17 01:29 Dose: 100 mls/hr Heparin Sodium (Porcine) 25, (000 unit/ Sodium Chloride) 500 mls @ 20 mls/hr IV TITR [facility]; 1,000 UNIT/HR PRN Reason: Protocol Last Admin: 07/28/17 20:15 Dose: 850 unit/hr, 17 mls/hr Insulin Aspart (Novolog Vial Sliding Scale -) 1 vial SQ Q6HPO [facility] PRN Reason: Protocol Last Admin: 07/29/17 05:58 Dose: Not Given Insulin Detemir (Levemir Vial) 5 units SQ HS [facility] Last Admin: 07/28/17 21:59 Dose: 5 units Metoprolol Tartrate (Lopressor -) 50 mg PO TID [facility] Last Admin: 07/29/17 06:02 Dose: 50 mg Morphine Sulfate (Morphine Sulfate) 1 mg IVPUSH Q4H PRN PRN Reason: PAIN Ondansetron HCl (Zofran Injection) 4 mg IVPUSH Q6H PRN PRN Reason: NAUSEA Polyethylene Glycol (Miralax (For Daily Use) -) 17 gm PO DAILY [facility] Last Admin: 07/28/17 10:31 Dose: Not Given - Objective Vital Signs: Vital Signs Temperature 99.2 F 07/29/17 08:57 Pulse Rate 60 07/29/17 08:57 Respiratory Rate 20 07/29/17 08:59 Blood Pressure 119/70 07/29/17 08:57 O2 Sat by Pulse Oximetry (%) 96 07/29/17 08:59 Labs: CBC, BMP 07/29/17 07:00 07/28/17 07:00 INR, PTT INR 1.35 (0.82-1.09) H D 07/26/17 17:50 Problem List - Problems (1) BENITO (acute kidney injury) Code(s): N17.9 - ACUTE KIDNEY FAILURE, UNSPECIFIED (2) Abdominal pain Code(s): R10.9 - UNSPECIFIED ABDOMINAL PAIN Qualifiers: Abdominal location: unspecified location Qualified Code(s): R10.9 - Unspecified abdominal pain (3) Aortic stenosis Code(s): I35.0 - NONRHEUMATIC AORTIC (VALVE) STENOSIS (4) Pneumonia Code(s): J18.9 - PNEUMONIA, UNSPECIFIED ORGANISM Qualifiers: Pneumonia type: due to Mycoplasma pneumoniae (5) Atrial fibrillation Code(s): I48.91 - UNSPECIFIED ATRIAL FIBRILLATION Qualifiers: Atrial fibrillation type: chronic Qualified Code(s): I48.2 - Chronic atrial fibrillation (6) Chronic systolic CHF (congestive heart failure) Code(s): I50.22 - CHRONIC SYSTOLIC (CONGESTIVE) HEART FAILURE (7) Diabetes Code(s): E11.9 - TYPE 2 DIABETES MELLITUS WITHOUT COMPLICATIONS Qualifiers: Diabetes mellitus type: type 2 Diabetes mellitus complication status: with circulatory complication Diabetes mellitus emt intermediate insulin use: without prison use (8) Rapid atrial fibrillation Code(s): I48.91 - UNSPECIFIED ATRIAL FIBRILLATION Assessment/Plan Assessment: 71 year old female with PMH afib on xarelto, CAD, CHF, colon ca s/p resection, DM, HTN and As presented to the ER with sudden onset of abdominal pain and vomiting and was diagnosed with partial SBO. Plan: 1. Partial SBO -Due to adhesion - Surgery to advance to PO diet 2. Lactic acidosis - Resolved 3. BENITO - Resolved w hydration 3. Multi ilobar PNA - Possible aspiration - Mild decrease in wbc - Continue Ceftriaxone/Flagyl day 3 4. Afib on xarelto - Heparin gtt - Once tolerating PO, resume xarelto - No surgical intervention per surgery 5. Chronic systolic CHF - Not in exacerbation - Per cards presumed to be NICM secondary to AFib with RVR - Nuclear stress test done 07/2016 here showed no ischemia and normal LVEF - Continue amio 200mg daily, dig 0.125mg, lopressor 50 tid 6. DM II - Will re-start levemir at half of home dose - Cont BGM Q6H and iss - Resume home doses once tolerating diet 7. DVT - Heparin gtt
[2017-07-29] MEDS: CEFTRIAXONE 1 G/50 ML PREMIX 1 ML IVPB SCH (10:21)
[2017-07-29] MEDS: ESCITALOPRAM OXALATE 10 MG TABLET (FP) PO SCH (10:22)
[2017-07-29] MEDS: DIGOXIN 0.125 MG TABLET (FP) PO SCH (10:23)
[2017-07-29] MEDS: AMIODARONE HCL 200 MG TABLET (FP) PO SCH (10:24)
[2017-07-29] MEDS: POLYETHYLENE GLYCOL 3350 119 GM BTL PO SCH (10:24)
--- NOTE | 2017-07-29 11:10 | PN ---
Progress Note, Physician - Current Medication List Current Medications: Active Medications Amiodarone HCl (Cordarone -) 200 mg PO DAILY [facility] Last Admin: 07/29/17 10:24 Dose: 200 mg Digoxin (Lanoxin -) 0.125 mg PO DAILY [facility] Last Admin: 07/29/17 10:23 Dose: 0.125 mg Docusate Sodium (Colace -) 100 mg PO BID PRN PRN Reason: CONSTIPATION Escitalopram Oxalate (Lexapro -) 5 mg PO DAILY [facility] Last Admin: 07/29/17 10:22 Dose: 5 mg Heparin Sodium (Porcine) (Heparin -) 1,000 unit IVPUSH PRN PRN PRN Reason: Heparin Heparin Sodium (Porcine) (Heparin -) 5,000 unit IVPUSH PRN PRN PRN Reason: Heparin Sodium Chloride (Normal Saline -) 1,000 mls @ 75 mls/hr IV ASDIR [facility] Last Admin: 07/29/17 02:15 Dose: 75 mls/hr CEFTRIAXONE 1 G/50 ML PREMIX (Ceftriaxone 1 Gm-D5w Bag) 1 mls @ 2 mls/hr IVPB DAILY [facility] Last Admin: 07/29/17 10:21 Dose: 2 mls/hr Metronidazole (Flagyl 500mg Premixed Ivpb -) 500 mg in 100 mls @ 100 mls/hr IVPB Q8H-IV [facility] Last Admin: 07/29/17 10:22 Dose: 100 mls/hr Heparin Sodium (Porcine) 25, (000 unit/ Sodium Chloride) 500 mls @ 20 mls/hr IV TITR [facility]; 1,000 UNIT/HR PRN Reason: Protocol Last Admin: 07/28/17 20:15 Dose: 850 unit/hr, 17 mls/hr Insulin Aspart (Novolog Vial Sliding Scale -) 1 vial SQ Q6HPO [facility] PRN Reason: Protocol Last Admin: 07/29/17 11:05 Dose: Not Given Insulin Detemir (Levemir Vial) 5 units SQ HS [facility] Last Admin: 07/28/17 21:59 Dose: 5 units Metoprolol Tartrate (Lopressor -) 50 mg PO TID [facility] Last Admin: 07/29/17 06:02 Dose: 50 mg Morphine Sulfate (Morphine Sulfate) 1 mg IVPUSH Q4H PRN PRN Reason: PAIN Ondansetron HCl (Zofran Injection) 4 mg IVPUSH Q6H PRN PRN Reason: NAUSEA Polyethylene Glycol (Miralax (For Daily Use) -) 17 gm PO DAILY [facility] Last Admin: 07/29/17 10:24 Dose: Not Given - Objective Vital Signs: Vital Signs Temperature 98.2 F 07/29/17 09:00 Pulse Rate 59 L 07/29/17 10:23 Respiratory Rate 18 07/29/17 09:00 Blood Pressure 144/71 07/29/17 09:00 O2 Sat by Pulse Oximetry (%) 95 07/29/17 09:34 Labs: CBC, BMP 07/29/17 07:00 07/28/17 07:00 INR, PTT INR 1.35 (0.82-1.09) H D 07/26/17 17:50 Problem List - Problems (1) Partial small bowel obstruction Code(s): K56.600 - PARTIAL INTESTINAL OBSTRUCTION, UNSPECIFIED TO CAUSE (2) Abdominal pain Code(s): R10.9 - UNSPECIFIED ABDOMINAL PAIN Qualifiers: Abdominal location: unspecified location Qualified Code(s): R10.9 - Unspecified abdominal pain (3) Atrial fibrillation Code(s): I48.91 - UNSPECIFIED ATRIAL FIBRILLATION Qualifiers: Atrial fibrillation type: chronic Qualified Code(s): I48.2 - Chronic atrial fibrillation (4) BENITO (acute kidney injury) Code(s): N17.9 - ACUTE KIDNEY FAILURE, UNSPECIFIED (5) Chronic systolic CHF (congestive heart failure) Code(s): I50.22 - CHRONIC SYSTOLIC (CONGESTIVE) HEART FAILURE Assessment/Plan Surgery: patient has no abdominal pain. She has had bowel movement. Tolerating diet. Abdomen is soft , not tender , no distention. Can be discharged home.
[2017-07-29] MEDS ORDERED: POTASSIUM CHLORIDE ORAL LIQUID 20 MEQ/15 ML PO ONE (13:30)
[2017-07-29] MEDS ORDERED: INSULIN (NOVOLOG) ASPART 100 UNITS/ML 10ML VIAL ONE ×2 (17:03→21:16)
[2017-07-29] MEDS: HEPARIN - 25,000 UNIT in SODIUM CHLORIDE 495 ML IV SCH (18:25)
[2017-07-29] MEDS: INSULIN DETEMIR 100 UNITS/ML MDV SQ SCH (21:46)
[2017-07-30] MEDS: METRONIDAZOLE 500 MG PREMIXED 500 MG/100 ML MG IVPB SCH ×2 (02:54→10:11)
[2017-07-30] MEDS: INSULIN SLIDING SCALE (NOVOLOG) 1 VIAL SQ SCH ×2 (06:36→11:38)
[2017-07-30] MEDS: METOPROLOL TARTRATE 25 MG TABLET (FP) PO SCH ×2 (06:36→13:25)
[2017-07-30] MEDS ORDERED: PT OWN MED DRAWER 7, Y5N ONE (07:02)
[2017-07-30 08:10] LABS: BASOPHIL 0.9 % (0-2.0); EOSINOPHIL 2.1 % (0-4.5); MCH 29.4 pg (25.7-33.7); MCHC 32.7 g/dl (32.0-36.0); MEAN CELL VOLUME 90.1 fl (80-96); MEAN PLT VOLUME 9.9 fl (7.5-11.1); NEUTROPHILS 69.8 % (42.8-82.8); PLATELET COUNT 141 K/MM3 (134-434); RDW 15.2 % (11.6-15.6); WHITE BLOOD COUNT 8.6 K/mm3 (4.0-10.0)
[2017-07-30 08:49] LABS: INR 1.31 (0.82-1.09); PROTHROMBIN TIME (PATIENT) 14.8 SEC (9.98-11.88)
[2017-07-30 09:19] LABS: ALBUMIN 2.4 g/dl (3.4-5.0); ALK PHOS 48 U/L (45-117); ANION GAP 11 (8-16); BILIRUBIN,TOTAL 0.5 mg/dL (0.2-1.0); CALCIUM 8.3 mg/dL (8.5-10.1); CO2 21 mmol/L (21-32); CREATININE 0.8 mg/dL (0.55-1.02); GLUCOSE,RANDOM 152 mg/dL (74-106); SGOT/AST 26 U/L (15-37); SGPT/ALT 17 U/L (12-78); TOT PROT 5.6 g/dl (6.4-8.2)
[2017-07-30] MEDS: AMIODARONE HCL 200 MG TABLET (FP) PO SCH (10:11)
[2017-07-30] MEDS: ESCITALOPRAM OXALATE 10 MG TABLET (FP) PO SCH (10:12)
[2017-07-30] MEDS: DIGOXIN 0.125 MG TABLET (FP) PO SCH (10:12)
[2017-07-30] MEDS: POLYETHYLENE GLYCOL 3350 119 GM BTL PO SCH (10:13)
--- NOTE | 2017-07-30 10:40 | DS ---
Physical Examination Vital Signs: Vital Signs Temperature 99.6 F 07/30/17 02:05 Pulse Rate 60 07/30/17 10:12 Respiratory Rate 21 07/30/17 02:05 Blood Pressure 145/55 07/30/17 06:38 O2 Sat by Pulse Oximetry (%) 95 07/29/17 21:00 Constitutional: Yes: Well Nourished, No Distress, Calm Eyes: Yes: WNL, Conjunctiva Clear, EOM Intact HENT: Yes: WNL, Atraumatic, Normocephalic Neck: Yes: WNL, Supple, Trachea Midline Cardiovascular: Yes: WNL, Pulse Irregular, S1, S2 Respiratory: Yes: WNL, Regular, CTA Bilaterally Gastrointestinal: Yes: WNL, Normal Bowel Sounds, Soft, Abdomen, Obese ...Rectal Exam: Yes: Deferred Edema: LLE: Trace, RLE: Trace Integumentary: Yes: WNL Neurological: Yes: WNL, Alert, Oriented ...Motor Strength: WNL Labs: CBC, BMP 07/30/17 07:30 07/30/17 07:30 Discharge Summary Reason For Visit: SMALL BOWEL OBSTRUCTION Ms Whitlock is a pleasant 71 year old female who comes in with abdominal pain and throwing up x24 hours. She was in her normal state of health until she developed abdominal pain. She says the pain was sharp/crampy in nature and constant. At its worst it was an 8/10. She says nothing relieved or exacerbated it. She says she soon after developed vomiting. She states that the emesis was clear, there was no blood or coffee ground emesis. She had anorexia secondary to the pain and vomiting. The pain was not improving and she came in here. Patient was found to have Partial small bowel obstruction for which surgery saw her and no intervention was made, patient now is tolerating food , passing gas, and able to defecate, BENITO (acute kidney injury) 2/2 to lack of PO intake patient was managed with IVF and it has improved. Pneumonia managed with ATB patient is asymptomatic will c.w antibiotics for 1 wk then d.c Bacteriuria asymptomatic , she has a hx of Atrial fibrillation rhythm controlled with amiodarone, and metoprolol will follow up with cardiology, her DM was managed with ISS. Stable no exacerbation of Chronic systolic CHF ( congestive heart failure) Condition: Stable - Instructions Referrals: Amber Benjamin MD [Primary Care Provider] - 1 Week Jasmin Thompson MD [Staff Physician] - 1 Week Michael Kahn MD [Staff Physician] - Disposition: HOME - Home Medications Comprehensive Discharge Medication List: Ambulatory Orders Escitalopram Oxalate [Lexapro -] 5 mg PO DAILY #0 tablet 09/24/13 Furosemide [Lasix -] 40 mg PO DAILY #30 tablet 08/17/16 Rivaroxaban [Xarelto -] 20 mg PO DAILY tablet 08/17/16 Amiodarone HCl 200 mg PO ONCE 07/26/17 Atorvastatin Ca [Lipitor] 40 mg PO HS 07/26/17 Digoxin [Lanoxin -] 0.125 mg PO DAILY 07/26/17 Insulin Glargine,Hum.rec.anlog [Lantus (nf)] 10 units SQ HS 07/26/17 Metoprolol Tartrate [Lopressor -] 50 mg PO TID 07/26/17 Omeprazole 20 mg PO ONCE 07/26/17
[2017-07-30 13:39] VITALS: BP 152/70; PULSE 63; TEMP 98.5
== END 2017-07-30 15:15 | disposition home or self-care (01) | DRG 388 ==
LOC: JER 09:09 → JERBED 17:15 → J6S 21:11
PROVIDERS: ADMIT Internal Medicine; ATTEND Internal Medicine
DX: K56.51 Intestinal adhesions [bands], with partial obstruction (principal); J15.7 Pneumonia due to Mycoplasma pneumoniae; N17.9 Acute kidney failure, unspecified; I50.22 Chronic systolic (congestive) heart failure; G40.89 Other seizures; E87.2 Acidosis; I69.354 Hemiplegia and hemiparesis following cerebral infarction affecting left non-dominant side; I48.2 Chronic atrial fibrillation; I25.10 Atherosclerotic heart disease of native coronary artery without angina pectoris; E78.5 Hyperlipidemia, unspecified; E11.9 Type 2 diabetes mellitus without complications; F32.9 Major depressive disorder, single episode, unspecified; I35.0 Nonrheumatic aortic (valve) stenosis; R82.71 Bacteriuria; E86.0 Dehydration; D72.828 Other elevated white blood cell count; Z95.5 Presence of coronary angioplasty implant and graft; Z85.42 Personal history of malignant neoplasm of other parts of uterus; Z85.038 Personal history of other malignant neoplasm of large intestine; Z90.710 Acquired absence of both cervix and uterus; Z79.84 Long term (current) use of oral hypoglycemic drugs
CPT/HCPCS: 36415; 71010-TC; 74176-TC; 74190-TC; 80048; 80053; 81003; 81015; 83605; 83690; 83735; 84100; 85025; 85027; 85610; 85730; 86850; 86900; 86901; 87086; 93005; 93010; 94010; 97116-GP; 97161-GP; 99285-25; J1644; Q9967

== ENCOUNTER 2020-09-14 14:25 | Emergency (ER) | payer OTHER, BC ==
[2020-09-14 14:34] VITALS: BP 114/54; PULSE 70; BMI 24.0
[2020-09-14] MEDS ORDERED: ONDANSETRON 4 MG/2 ML VIAL IVPUSH ONE (17:48)
[2020-09-14] MEDS ORDERED: SODIUM CHLORIDE 1,000 ML IV STA (17:48)
[2020-09-14] MEDS ORDERED: ONDANSETRON 4 MG/2 ML VIAL ONE (17:50)
[2020-09-14 18:50] LABS: BASO % 0.1 % (0-2.0); EOS % 0.2 % (0-4.5); HEMATOCRIT 44.1 % (32.4-45.2); HEMOGLOBIN 14.4 GM/dL (10.7-15.3); LYMPH % 13.8 % (8-40); MCH 25.8 pg (25.7-33.7); MCHC 32.6 g/dl (32.0-36.0); MEAN CELL VOLUME 79.2 fl (80-96); MEAN PLT VOLUME 10.3 fl (7.5-11.1); MONO % 18.1 % (3.8-10.2); NEUT % 67.8 % (42.8-82.8); PLATELET COUNT 227 K/MM3 (134-434); RBC 5.56 M/mm3 (3.60-5.2); RDW 17.3 % (11.6-15.6); WHITE BLOOD COUNT 6.8 K/mm3 (4.0-10.0)
[2020-09-14 18:57] LABS: CHLORIDE 97 mmol/L (98-107); SODIUM 135 mmol/L (136-145)
[2020-09-14 18:59] LABS: CALCIUM 8.8 mg/dL (8.5-10.1)
[2020-09-14 19:00] LABS: ANION GAP 10 MMOL/L (8-16); BLOOD UREA NITROGEN 41.5 mg/dL (7-18); CO2 28 mmol/L (21-32); GLUCOSE,RANDOM 211 mg/dL (74-106); LIPASE 56 U/L (73-393); MAGNESIUM 1.8 mg/dL (1.8-2.4)
[2020-09-14 19:03] LABS: CREATININE 1.1 mg/dL (0.55-1.3); SGOT/AST 13 U/L (15-37); SGPT/ALT 14 U/L (13-61)
[2020-09-14 19:04] LABS: BILIRUBIN,TOTAL 0.8 mg/dL (0.2-1)
[2020-09-14 19:06] LABS: ALK PHOS 88 U/L (45-117)
[2020-09-14 19:56] LABS: URINE APPEARANCE CLOUDY; URINE BILIRUBIN NEGATIVE (NEGATIVE); URINE COLOR YELLOW; URINE GLUCOSE (UA) NEGATIVE (NEGATIVE); URINE KETONE NEGATIVE (NEGATIVE); URINE LEUK ESTERASE NEGATIVE (NEGATIVE); URINE NITRITE NEGATIVE (NEGATIVE); URINE PROTEIN NEGATIVE (NEGATIVE); URINE UROBILINOGEN 0.2 mg/dL (0.2-1.0)
== END 2020-09-14 21:12 | disposition home or self-care (01) ==
LOC: JER 14:25
PROC: 3E033GC Introduction of Other Therapeutic Substance into Peripheral Vein, Percutaneous Approach (ICD-10-PCS; principal; 2020-09-14)
PROC: 3E0337Z Introduction of Electrolytic and Water Balance Substance into Peripheral Vein, Percutaneous Approach (ICD-10-PCS; 2020-09-14)
DX: R11.2 Nausea with vomiting, unspecified (principal)
CPT/HCPCS: 36415; 74018-TC-FY; 80053; 81003; 82550; 83690; 83735; 84484; 85025; 87086; 87186; 93005; 93010; 99285-25

== ENCOUNTER 2020-10-10 18:12 | Inpatient (IN) | payer OTHER, BC ==
[2020-10-10 18:20] VITALS: BMI 23.0
[2020-10-10] MEDS ORDERED: SODIUM CHLORIDE 500 ML IV STA (18:46)
[2020-10-10] MEDS ORDERED: PANTOPRAZOLE SODIUM 40 MG VIAL IVPUSH ONE (18:47)
[2020-10-10] MEDS ORDERED: PANTOPRAZOLE SODIUM 40 MG VIAL ONE (18:59)
[2020-10-10 19:14] LABS: BASO % 0.8 % (0-2.0); EOS % 1.4 % (0-4.5); HEMOGLOBIN 10.2 GM/dL (10.7-15.3); LYMPH % 21.2 % (8-40); MCH 25.9 pg (25.7-33.7); MEAN CELL VOLUME 80.8 fl (80-96); MEAN PLT VOLUME 9.6 fl (7.5-11.1); MONO % 9.3 % (3.8-10.2); NEUT % 67.3 % (42.8-82.8); PLATELET COUNT 196 K/MM3 (134-434); RBC 3.96 M/mm3 (3.60-5.2); WHITE BLOOD COUNT 6.7 K/mm3 (4.0-10.0)
[2020-10-10 19:22] LABS: INR 2.95 (0.83-1.09); PROTHROMBIN TIME (PATIENT) 35.2 SEC (9.7-13.0)
[2020-10-10 19:46] LABS: POTASSIUM 3.2 mmol/L (3.5-5.1)
[2020-10-10 19:48] LABS: CALCIUM 8.7 mg/dL (8.5-10.1)
[2020-10-10 19:49] LABS: BLOOD UREA NITROGEN 19.3 mg/dL (7-18)
[2020-10-10 19:52] LABS: CREATININE 1.1 mg/dL (0.55-1.3)
[2020-10-10 19:54] LABS: BILIRUBIN,TOTAL 0.4 mg/dL (0.2-1); TOT PROT 6.4 g/dl (6.4-8.2)
[2020-10-10] MEDS ORDERED: POTASSIUM CHLORIDE TABS 20 MEQ TABLET.ER (FP) PO ONE ×2 (20:07→20:16)
[2020-10-10 20:23] LABS: MAGNESIUM 1.5 mg/dL (1.8-2.4)
[2020-10-10] MEDS ORDERED: MAGNESIUM SULF 50% (8.12 MEQ/2 ML-1 GM VIAL) IVPB ONE (20:47)
[2020-10-10] MEDS ORDERED: MAGNESIUM SULFATE IN WATER 2 GM/50 ML IVPB IVPB ONE (21:13)
[2020-10-10 22:52] LABS: BASO % 0.6 % (0-2.0); EOS % 1.1 % (0-4.5); HEMATOCRIT 30.1 % (32.4-45.2); HEMOGLOBIN 9.6 GM/dL (10.7-15.3); LYMPH % 31.9 % (8-40); MCH 25.8 pg (25.7-33.7); MCHC 31.8 g/dl (32.0-36.0); MEAN PLT VOLUME 9.1 fl (7.5-11.1); MONO % 10.5 % (3.8-10.2); NEUT % 55.9 % (42.8-82.8); PLATELET COUNT 184 K/MM3 (134-434); RBC 3.71 M/mm3 (3.60-5.2); RDW 16.8 % (11.6-15.6); WHITE BLOOD COUNT 7.4 K/mm3 (4.0-10.0)
[2020-10-10] MEDS ORDERED: PROTHROMBIN COMPLEX CONCENTRATE IV ONE (23:15)
[2020-10-11] MEDS ORDERED: SODIUM CHLORIDE 500 ML IV STA (00:29)
[2020-10-11 01:11] LABS: MAGNESIUM 2.4 mg/dL (1.8-2.4)
[2020-10-11 01:34] LABS: POTASSIUM 2.9 mmol/L (3.5-5.1)
[2020-10-11] MEDS: INSULIN SLIDING SCALE (NOVOLOG) 1 VIAL SQ SCH ×4 (01:37→18:47)
[2020-10-11] MEDS: KCL 10 MEQ IVPB 10 MEQ/100 ML INFUS.BAG IVPB SCH ×3 (02:10→04:00)
[2020-10-11] MEDS ORDERED: KCL 10 MEQ IVPB 10 MEQ/100 ML INFUS.BAG IVPB SCH (02:45)
[2020-10-11 03:15] LABS: BASO % 1.1 % (0-2.0); EOS % 1.3 % (0-4.5); HEMATOCRIT 28.5 % (32.4-45.2); HEMOGLOBIN 9.1 GM/dL (10.7-15.3); LYMPH % 21.5 % (8-40); MCH 25.6 pg (25.7-33.7); MCHC 31.9 g/dl (32.0-36.0); MEAN CELL VOLUME 80.4 fl (80-96); MEAN PLT VOLUME 9.6 fl (7.5-11.1); MONO % 11.9 % (3.8-10.2); NEUT % 64.2 % (42.8-82.8); PLATELET COUNT 165 K/MM3 (134-434); RBC 3.54 M/mm3 (3.60-5.2); RDW 17.4 % (11.6-15.6); WHITE BLOOD COUNT 9.8 K/mm3 (4.0-10.0)
[2020-10-11 05:46] LABS: HEMATOCRIT 27.6 % (32.4-45.2); HEMOGLOBIN 8.9 GM/dL (10.7-15.3); MCH 26.2 pg (25.7-33.7); MCHC 32.3 g/dl (32.0-36.0); MEAN CELL VOLUME 80.9 fl (80-96); MEAN PLT VOLUME 9.4 fl (7.5-11.1); PLATELET COUNT 178 K/MM3 (134-434); RBC 3.41 M/mm3 (3.60-5.2); RDW 17.3 % (11.6-15.6); WHITE BLOOD COUNT 8.8 K/mm3 (4.0-10.0)
[2020-10-11] MEDS ORDERED: PANTOPRAZOLE SODIUM 40 MG/100 ML BAG IVPB ONE (10:09)
[2020-10-11] MEDS: PANTOPRAZOLE SODIUM 40 MG VIAL IVPUSH SCH ×2 (10:25→21:54)
[2020-10-11] MEDS: SODIUM CHLORIDE 1,000 ML IV SCH (12:30)
[2020-10-11] MEDS: POLYETHYLENE GLYCOL 3350 119 GM BTL PO SCH ×2 (16:00→21:53)
[2020-10-11 16:53] LABS: BASO % 1.4 % (0-2.0); EOS % 3.1 % (0-4.5); HEMATOCRIT 33.8 % (32.4-45.2); LYMPH % 27.9 % (8-40); MCH 26.8 pg (25.7-33.7); MCHC 32.6 g/dl (32.0-36.0); MEAN CELL VOLUME 82.3 fl (80-96); MEAN PLT VOLUME 9.7 fl (7.5-11.1); MONO % 12.2 % (3.8-10.2); NEUT % 55.4 % (42.8-82.8); PLATELET COUNT 145 K/MM3 (134-434); RBC 4.11 M/mm3 (3.60-5.2); RDW 16.3 % (11.6-15.6); WHITE BLOOD COUNT 8.5 K/mm3 (4.0-10.0)
[2020-10-11 17:22] LABS: POTASSIUM 3.7 mmol/L (3.5-5.1)
[2020-10-11 17:24] LABS: ALBUMIN 2.5 g/dl (3.4-5.0); CALCIUM 8.4 mg/dL (8.5-10.1); MAGNESIUM 2.1 mg/dL (1.8-2.4)
[2020-10-11 17:28] LABS: CREATININE 0.7 mg/dL (0.55-1.3)
[2020-10-11 17:29] LABS: BILIRUBIN,TOTAL 0.8 mg/dL (0.2-1); TOT PROT 5.1 g/dl (6.4-8.2)
[2020-10-11 22:54] LABS: HEMATOCRIT 34.6 % (32.4-45.2); HEMOGLOBIN 11.2 GM/dL (10.7-15.3); MCH 26.4 pg (25.7-33.7); MCHC 32.3 g/dl (32.0-36.0); MEAN CELL VOLUME 81.8 fl (80-96); MEAN PLT VOLUME 9.6 fl (7.5-11.1); PLATELET COUNT 148 K/MM3 (134-434); RBC 4.24 M/mm3 (3.60-5.2); RDW 16.5 % (11.6-15.6); WHITE BLOOD COUNT 8.1 K/mm3 (4.0-10.0)
[2020-10-12] MEDS: INSULIN SLIDING SCALE (NOVOLOG) 1 VIAL SQ SCH ×5 (00:26→23:45)
[2020-10-12] MEDS: POLYETHYLENE GLYCOL 3350 119 GM BTL PO SCH ×3 (06:05→21:34)
[2020-10-12 08:32] LABS: BASO % 0.8 % (0-2.0); EOS % 3.3 % (0-4.5); HEMATOCRIT 32.5 % (32.4-45.2); HEMOGLOBIN 10.6 GM/dL (10.7-15.3); LYMPH % 30.1 % (8-40); MCH 26.5 pg (25.7-33.7); MCHC 32.6 g/dl (32.0-36.0); MEAN CELL VOLUME 81.4 fl (80-96); MEAN PLT VOLUME 9.8 fl (7.5-11.1); MONO % 10.3 % (3.8-10.2); NEUT % 55.5 % (42.8-82.8); PLATELET COUNT 147 K/MM3 (134-434); RDW 16.8 % (11.6-15.6); WHITE BLOOD COUNT 7.2 K/mm3 (4.0-10.0)
[2020-10-12 08:38] LABS: INR 0.99 (0.83-1.09)
[2020-10-12 08:50] LABS: POTASSIUM 3.3 mmol/L (3.5-5.1)
[2020-10-12 08:58] LABS: ALBUMIN 2.3 g/dl (3.4-5.0); BLOOD UREA NITROGEN 12.5 mg/dL (7-18); CALCIUM 8.1 mg/dL (8.5-10.1); MAGNESIUM 2.1 mg/dL (1.8-2.4)
[2020-10-12] MEDS: PANTOPRAZOLE SODIUM 40 MG VIAL IVPUSH SCH ×2 (08:59→21:49)
[2020-10-12 09:01] LABS: BILIRUBIN,TOTAL 0.7 mg/dL (0.2-1); CREATININE 0.7 mg/dL (0.55-1.3); PHOSPHOROUS 2.3 mg/dL (2.5-4.9)
[2020-10-12 09:03] LABS: TOT PROT 4.9 g/dl (6.4-8.2)
[2020-10-12] MEDS ORDERED: POTASSIUM CHLORIDE TABS 20 MEQ TABLET.ER (FP) PO ONE ×2 (10:12→12:15)
[2020-10-12] MEDS: SODIUM CHLORIDE 1,000 ML IV SCH (11:17)
[2020-10-12] MEDS ORDERED: NAPH,MB-DB/K PH,MBDB POWDER PACKET PO ONE (12:53)
[2020-10-12] MEDS ORDERED: BISACODYL 5 MG TABLET.DR (FP) PO ONE (18:19)
[2020-10-12] MEDS: ATORVASTATIN CA 40 MG TABLET (FP) PO SCH (21:36)
[2020-10-13] MEDS: POLYETHYLENE GLYCOL 3350 119 GM BTL PO SCH ×3 (05:42→21:54)
[2020-10-13] MEDS ORDERED: PEG 3350/NA SULF BICARB CL/KCL 4000 ML SOLN.RECON PO ONE (06:00)
[2020-10-13] MEDS: INSULIN SLIDING SCALE (NOVOLOG) 1 VIAL SQ SCH ×3 (06:03→18:05)
[2020-10-13 07:47] LABS: INR 1.09 (0.83-1.09); PROTHROMBIN TIME (PATIENT) 13.1 SEC (9.7-13.0)
[2020-10-13 07:59] LABS: BASO % 0.7 % (0-2.0); EOS % 3.3 % (0-4.5); HEMATOCRIT 33.8 % (32.4-45.2); HEMOGLOBIN 11.2 GM/dL (10.7-15.3); LYMPH % 27.8 % (8-40); MCH 26.9 pg (25.7-33.7); MCHC 33.2 g/dl (32.0-36.0); MEAN CELL VOLUME 81.3 fl (80-96); MEAN PLT VOLUME 9.4 fl (7.5-11.1); MONO % 10.3 % (3.8-10.2); NEUT % 57.9 % (42.8-82.8); PLATELET COUNT 163 K/MM3 (134-434); RBC 4.16 M/mm3 (3.60-5.2); RDW 17.1 % (11.6-15.6); WHITE BLOOD COUNT 8.7 K/mm3 (4.0-10.0)
[2020-10-13 08:07] LABS: PHOSPHOROUS 2.5 mg/dL (2.5-4.9)
[2020-10-13 08:23] LABS: MAGNESIUM 1.8 mg/dL (1.8-2.4)
[2020-10-13] MEDS: PANTOPRAZOLE SODIUM 40 MG VIAL IVPUSH SCH ×2 (09:21→21:54)
[2020-10-13] MEDS: AMIODARONE HCL 200 MG TABLET PO SCH (09:21)
[2020-10-13] MEDS: DIGOXIN 0.125 MG TABLET (FP) PO SCH (09:30)
[2020-10-13 10:01] LABS: POTASSIUM 4.1 mmol/L (3.5-5.1)
[2020-10-13 10:03] LABS: BLOOD UREA NITROGEN 6.5 mg/dL (7-18); CALCIUM 8.2 mg/dL (8.5-10.1)
[2020-10-13 10:06] LABS: CREATININE 0.7 mg/dL (0.55-1.3)
[2020-10-13] MEDS: SODIUM CHLORIDE 1,000 ML IV SCH (12:24)
[2020-10-13] MEDS ORDERED: ESCITALOPRAM OXALATE 10 MG TABLET PO SCH (14:30)
[2020-10-13] MEDS ORDERED: BISACODYL 5 MG TABLET.DR (FP) PO ONE (18:00)
[2020-10-13] MEDS: ATORVASTATIN CA 40 MG TABLET (FP) PO SCH (21:54)
[2020-10-14] MEDS: INSULIN SLIDING SCALE (NOVOLOG) 1 VIAL SQ SCH ×4 (00:05→17:01)
[2020-10-14] MEDS: POLYETHYLENE GLYCOL 3350 119 GM BTL PO SCH (06:10)
[2020-10-14 07:24] LABS: BASO % 0.6 % (0-2.0); EOS % 3.4 % (0-4.5); HEMATOCRIT 32.9 % (32.4-45.2); HEMOGLOBIN 10.9 GM/dL (10.7-15.3); LYMPH % 25.4 % (8-40); MCH 26.9 pg (25.7-33.7); MEAN CELL VOLUME 81.4 fl (80-96); MEAN PLT VOLUME 9.2 fl (7.5-11.1); MONO % 10.7 % (3.8-10.2); NEUT % 59.9 % (42.8-82.8); PLATELET COUNT 172 K/MM3 (134-434); RBC 4.04 M/mm3 (3.60-5.2); RDW 16.6 % (11.6-15.6); WHITE BLOOD COUNT 8.8 K/mm3 (4.0-10.0)
[2020-10-14 07:37] LABS: INR 1.18 (0.83-1.09); PROTHROMBIN TIME (PATIENT) 14.5 SEC (9.7-13.0)
[2020-10-14 07:56] LABS: POTASSIUM 3.1 mmol/L (3.5-5.1)
[2020-10-14 07:59] LABS: BLOOD UREA NITROGEN 4.2 mg/dL (7-18); MAGNESIUM 1.7 mg/dL (1.8-2.4)
[2020-10-14 08:03] LABS: CREATININE 0.7 mg/dL (0.55-1.3); PHOSPHOROUS 2.6 mg/dL (2.5-4.9)
[2020-10-14] MEDS: KCL 10 MEQ IVPB 10 MEQ/100 ML INFUS.BAG IVPB SCH ×3 (12:00→14:30)
[2020-10-14] MEDS ORDERED: POTASSIUM CHLORIDE TABS 20 MEQ TABLET.ER (FP) PO ONE (14:30)
[2020-10-14] MEDS: AMIODARONE HCL 200 MG TABLET PO SCH (15:40)
[2020-10-14] MEDS: DIGOXIN 0.125 MG TABLET (FP) PO SCH (15:46)
[2020-10-14 17:22] LABS: POTASSIUM 3.7 mmol/L (3.5-5.1)
[2020-10-14 17:24] LABS: ALBUMIN 2.1 g/dl (3.4-5.0); BLOOD UREA NITROGEN 4.7 mg/dL (7-18)
[2020-10-14 17:28] LABS: CREATININE 0.7 mg/dL (0.55-1.3)
[2020-10-14 17:29] LABS: BILIRUBIN,TOTAL 0.6 mg/dL (0.2-1); TOT PROT 4.8 g/dl (6.4-8.2)
[2020-10-14] MEDS: ATORVASTATIN CA 40 MG TABLET (FP) PO SCH (21:48)
[2020-10-15] MEDS: INSULIN SLIDING SCALE (NOVOLOG) 1 VIAL SQ SCH ×2 (00:15→13:10)
[2020-10-15 07:30] LABS: BASO % 0.7 % (0-2.0); HEMATOCRIT 33.7 % (32.4-45.2); HEMOGLOBIN 11.1 GM/dL (10.7-15.3); LYMPH % 25.3 % (8-40); MCHC 33.1 g/dl (32.0-36.0); MEAN CELL VOLUME 81.8 fl (80-96); MEAN PLT VOLUME 9.5 fl (7.5-11.1); MONO % 10.5 % (3.8-10.2); NEUT % 60.5 % (42.8-82.8); PLATELET COUNT 173 K/MM3 (134-434); RBC 4.12 M/mm3 (3.60-5.2); WHITE BLOOD COUNT 8.4 K/mm3 (4.0-10.0)
[2020-10-15 07:50] LABS: POTASSIUM 3.8 mmol/L (3.5-5.1)
[2020-10-15 07:56] LABS: CALCIUM 8.1 mg/dL (8.5-10.1)
[2020-10-15 07:57] LABS: ALBUMIN 2.1 g/dl (3.4-5.0); BLOOD UREA NITROGEN 5.3 mg/dL (7-18); MAGNESIUM 1.7 mg/dL (1.8-2.4)
[2020-10-15 08:00] LABS: CREATININE 0.7 mg/dL (0.55-1.3); PHOSPHOROUS 2.6 mg/dL (2.5-4.9)
[2020-10-15 08:01] LABS: BILIRUBIN,TOTAL 0.7 mg/dL (0.2-1)
[2020-10-15] MEDS ORDERED: MAGNESIUM SULF 50% (8.12 MEQ/2 ML-1 GM VIAL) IVPB ONE (08:18)
[2020-10-15] MEDS ORDERED: POLYETHYLENE GLYCOL 3350 119 GM BTL PO SCH (10:00)
[2020-10-15] MEDS: AMIODARONE HCL 200 MG TABLET PO SCH (10:59)
[2020-10-15] MEDS: DIGOXIN 0.125 MG TABLET (FP) PO SCH (13:10)
[2020-10-15 19:43] VITALS: BP 142/84; PULSE 62; TEMP 97.2
== END 2020-10-15 15:45 | disposition home or self-care (01) | DRG 378 ==
LOC: JER 18:12 → JERBED 23:11 → J4W 10-11 18:25
PROVIDERS: ADMIT Hospitalist; ATTEND Internal Medicine
PROC: 30233N1 Transfusion of Nonautologous Red Blood Cells into Peripheral Vein, Percutaneous Approach (ICD-10-PCS; 2020-10-11)
PROC: 0DBL8ZX Excision of Transverse Colon, Via Natural or Artificial Opening Endoscopic, Diagnostic (ICD-10-PCS; 2020-10-14)
PROC: 0DBP8ZX Excision of Rectum, Via Natural or Artificial Opening Endoscopic, Diagnostic (ICD-10-PCS; 2020-10-14)
PROC: 0DB98ZX Excision of Duodenum, Via Natural or Artificial Opening Endoscopic, Diagnostic (ICD-10-PCS; 2020-10-14)
PROC: 0DB68ZX Excision of Stomach, Via Natural or Artificial Opening Endoscopic, Diagnostic (ICD-10-PCS; 2020-10-14)
PROC: 0DB78ZX Excision of Stomach, Pylorus, Via Natural or Artificial Opening Endoscopic, Diagnostic (ICD-10-PCS; 2020-10-14)
PROC: 0DBK8ZX Excision of Ascending Colon, Via Natural or Artificial Opening Endoscopic, Diagnostic (ICD-10-PCS; principal; 2020-10-14 09:00)
DX: K92.2 Gastrointestinal hemorrhage, unspecified (principal); G81.94 Hemiplegia, unspecified affecting left nondominant side; I50.22 Chronic systolic (congestive) heart failure; K52.0 Gastroenteritis and colitis due to radiation; I11.0 Hypertensive heart disease with heart failure; E83.42 Hypomagnesemia; F03.90 Unspecified dementia, unspecified severity, without behavioral disturbance, psychotic disturbance, mood disturbance, and anxiety; E83.39 Other disorders of phosphorus metabolism; D64.9 Anemia, unspecified; I48.0 Paroxysmal atrial fibrillation; E11.9 Type 2 diabetes mellitus without complications; E87.6 Hypokalemia; K29.70 Gastritis, unspecified, without bleeding; K64.1 Second degree hemorrhoids; K57.30 Diverticulosis of large intestine without perforation or abscess without bleeding; I25.10 Atherosclerotic heart disease of native coronary artery without angina pectoris; K44.9 Diaphragmatic hernia without obstruction or gangrene; R56.9 Unspecified convulsions; F32.9 Major depressive disorder, single episode, unspecified; E78.5 Hyperlipidemia, unspecified; I35.0 Nonrheumatic aortic (valve) stenosis; Z85.42 Personal history of malignant neoplasm of other parts of uterus; Z95.5 Presence of coronary angioplasty implant and graft; Z90.49 Acquired absence of other specified parts of digestive tract
CPT/HCPCS: 36415; 36430; 36511; 71045-TC-FY; 74176-TC; 80048; 80053; 80162; 82550; 82728; 82962; 83735; 84100; 84132; 84484; 85025; 85027; 85610; 86850; 86900; 86901; 86922; 87045; 87046; 87177; 87209; 87324; 87449; 93005; 93010; 97116-GP; 97162-GP; 99285-25; C9132; C9803; P9038; P9058; U0003

== ENCOUNTER 2021-05-03 13:48 | Emergency (ER) | payer OTHER, BC ==
[2021-05-03 13:57] VITALS: BP 116/67; PULSE 60; TEMP 97.5; BMI 23.1
[2021-05-03 18:14] LABS: BASO % 0.8 % (0-2.0); EOS % 1.5 % (0-4.5); HEMATOCRIT 39.7 % (32.4-45.2); HEMOGLOBIN 12.8 GM/dL (10.7-15.3); MCH 24.9 pg (25.7-33.7); MCHC 32.1 g/dl (32.0-36.0); MEAN CELL VOLUME 77.5 fl (80-96); MEAN PLT VOLUME 9.1 fl (7.5-11.1); MONO % 8.6 % (3.8-10.2); NEUT % 68.1 % (42.8-82.8); PLATELET COUNT 172 10^3/uL (134-434); RBC 5.13 M/mm3 (3.60-5.2); WHITE BLOOD COUNT 7.8 K/mm3 (4.0-10.0)
[2021-05-03 18:29] LABS: CHLORIDE 106 mmol/L (98-107); SODIUM 141 mmol/L (136-145)
[2021-05-03 18:32] LABS: ALBUMIN 3.4 g/dl (3.4-5.0); ANION GAP 4 MMOL/L (8-16); BLOOD UREA NITROGEN 15.2 mg/dL (7-18); CALCIUM 8.8 mg/dL (8.5-10.1); CO2 31 mmol/L (21-32); GLUCOSE,RANDOM 94 mg/dL (74-106); LIPASE 232 U/L (73-393)
[2021-05-03 18:35] LABS: CREATININE 0.9 mg/dL (0.55-1.3); SGOT/AST 19 U/L (15-37); SGPT/ALT 17 U/L (13-61)
[2021-05-03 18:37] LABS: BILIRUBIN,TOTAL 0.5 mg/dL (0.2-1); TOT PROT 7.5 g/dl (6.4-8.2)
[2021-05-03 18:38] LABS: ALK PHOS 69 U/L (45-117)
[2021-05-03 19:35] LABS: EPI CELLS 4 /uL (0-25.1); HYALINE CASTS 1 /uL (0-3.1); URINE APPEARANCE CLEAR; URINE BACTERIA >9,000 /uL (0-1359); URINE BILIRUBIN NEGATIVE (NEGATIVE); URINE COLOR YELLOW; URINE GLUCOSE (UA) NEGATIVE (NEGATIVE); URINE KETONE NEGATIVE (NEGATIVE); URINE LEUK ESTERASE TRACE (NEGATIVE); URINE NITRITE POSITIVE (NEGATIVE); URINE PROTEIN NEGATIVE (NEGATIVE); URINE RBC 2 /uL (0-23.9); URINE UROBILINOGEN 0.2 mg/dL (0.2-1.0); URINE WBC 38 /uL (0-25.8)
== END 2021-05-03 20:15 | disposition home or self-care (01) ==
LOC: JER 13:48
DX: S01.81XA Laceration without foreign body of other part of head, initial encounter (principal); N39.0 Urinary tract infection, site not specified; W01.198A Fall on same level from slipping, tripping and stumbling with subsequent striking against other object, initial encounter; Y92.002 Bathroom of unspecified non-institutional (private) residence as the place of occurrence of the external cause; Y93.01 Activity, walking, marching and hiking
CPT/HCPCS: 36415; 70450-TC; 71045-TC-FY; 80053; 81003; 82550; 83690; 84484; 85025; 87086; 87186; 93005; 93010; 99285-25